=== PATIENT | male | born 1985 | race Caucasian/White ===

== ENCOUNTER 2024-03-25 10:43 | Inpatient (IN) | payer BC ==
[2024-03-25] MEDS: HYDROmorphone 0.5 MG/0.5 ML SYRINGE IVP STA (11:42)
--- NOTE | 2024-03-25 11:48 | ED ---
Back Pain HPI - General Chief Complaint: Back Pain/Injury Stated Complaint: Back Pain Time Seen by Provider: 03/25/24 11:47 Source: patient, EMS, RN notes reviewed Mode of arrival: EMS Limitations: physical limitation - History of Present Illness Initial Comments: 38-year-old male presented to the ER via EMS with a chief complaint of back pain. Patient has an extensive history of back pain and has been following up with a chiropractor to manage symptoms. He states for the past 3 days he has been having exacerbation of pain. He was seen at [facility] and had x-rays and CT scan completed. He states he has been having weakness as his legs will "give out" on him. He does report a mild paresthesia to perineal area. He reports his right leg is more painful than his left. He states he has been constipated for the past 3 days and is having difficulty urinating. Denies any known new injuries or traumas. He has been taking muscle relaxers, ibuprofen and Medrol Dosepak without relief. - Related Data Home Medications Medication Instructions Recorded Confirmed Bariatric Multivitamin 1 tab PO DAILY 03/25/24 03/25/24 HYDROcodone/APAP 5-325MG [[place] 1 tab PO Q6H PRN 03/25/24 03/25/24 5-325] Ibuprofen [Motrin] 600 mg PO Q8HR PRN 03/25/24 03/25/24 Sertraline [Zoloft] 25 mg PO DAILY 03/25/24 03/25/24 Vitamin B Complex 1 cap PO DAILY 03/25/24 03/25/24 methocarbamoL [Robaxin] 500 mg PO Q6H PRN 03/25/24 03/25/24 methylPREDNISolone Dose Pack See Taper PO DAILY 03/25/24 03/25/24 [Medrol Dose Pack] Previous Rx's Medication Instructions Recorded HYDROcodone/APAP 7.5-325MG [[place] 1 tab PO Q6HR PRN 3 Days #12 tab 03/25/24 7.5-325] Naproxen 250 mg PO Q8HR #30 tablet 03/25/24 Allergies Allergy/AdvReac Type Severity Reaction Status Date / Time Penicillins Allergy Unknown Verified 03/25/24 15:21 Childhood Review of Systems ROS Statement: Those systems with pertinent positive or pertinent negative responses have been documented in the HPI. ROS Other: All systems not noted in ROS Statement are negative. Past Medical History Past Medical History: Asthma Additional Past Medical History / Comment(s): COVID 2022 Past Surgical History: Bariatric Surgery Additional Past Surgical History / Comment(s): shoulder tendon repair surgery 2022 Past Psychological History: Anxiety, Depression Smoking Status: Never smoker Past Alcohol Use History: Occasional Past Drug Use History: Marijuana General Exam General appearance: alert, in no apparent distress Head exam: Present: atraumatic, normocephalic, normal inspection Neck exam: Present: normal inspection. Absent: tenderness, meningismus, lymphadenopathy Respiratory exam: Present: normal lung sounds bilaterally. Absent: respiratory distress, wheezes, rales, rhonchi, stridor Cardiovascular Exam: Present: regular rate, normal rhythm, normal heart sounds. Absent: systolic murmur, diastolic murmur, rubs, gallop, clicks Rectal exam: Present: normal inspection, normal rectal tone Back exam: Present: tenderness (lumbar and right pelvic gurdle.) Neurological exam: Present: alert, oriented X3, CN II-XII intact, other (+ right striaght leg raise. pain with movement of leg. 2+ DP and PT pulse. sensation intact) Course Vital Signs 03/25/24 03/25/24 03/25/24 10:45 12:14 14:45 Temperature 97.9 F Pulse Rate 71 62 Respiratory 20 18 Rate Blood Pressure 120/67 115/65 121/82 O2 Sat by Pulse 100 95 Oximetry 03/25/24 17:45 Temperature Pulse Rate 65 Respiratory 18 Rate Blood Pressure 126/84 O2 Sat by Pulse 99 Oximetry - Reevaluation(s) Reevaluation #1: 03/25/24 12:45 Rectal exam completed and chaperoned by Stefania Lange RN. Reevaluation #2: 03/25/24 14:[address] Willis, who advised on outpatient management and follow-up with orthopedics. Reevaluation #3: 03/25/24 14:22 Patient refusing discharge as he does not feel safe to go home. Dr. Thompson called ER and agreed for admission of patient and he will order MRI. 03/25/24 17:[address] Thompson in person who advised 20mg IVP Decadron then 6mg Q6hrs. Also suggested toradol. 03/25/24 17:10 Dr. Willis called ER and would like to be on as medical consult. Medical Decision Making - Medical Decision Making Was pt. sent in by a medical professional or institution (DEANNE Chirinos, BIRD [employer]ER, urgent care, hospital, or care home...) When possible be specific @ -No Did you speak to anyone other than the patient for history (EMS, parent, family, police, friend...)? What history was obtained from this source @ -No Did you review nursing and triage notes (agree or disagree)? Why? @ -I reviewed and agree with nursing and triage notes Were old charts reviewed (outside hosp., previous admission, EMS record, old EKG, old radiological studies, urgent care reports/EKG's, care home records)? Report findings @ -No old charts were reviewed Differential Diagnosis (chest pain, altered mental status, abdominal pain women, abdominal pain men, vaginal bleeding, weakness, fever, dyspnea, syncope, headache, dizziness, GI bleed, back pain, seizure, CVA, palpatations, mental health, musculoskeletal)? @ -Differential Back Pain: Strain, zoster, cauda equina syndrome, epidural abscess, vertebral osteomyelitis, discitis, fracture, subluxation, disc herniation, DJD, spinal stenosis, dissection, AAA, pancreatitis, peptic ulcer disease, pyelonephritis, kidney stone, this is not meant to be an all-inclusive list. EKG interpreted by me (3pts min.). @ -None X-rays interpreted by me (1pt min.). @ -None done CT interpreted by me (1pt min.). @ -CT lumbar spine significant for L3-L4 foraminal/right central disc extrusion with inferior migration. Grade 1 anterolisthesis of L5 on S1 with bilateral spondylolysis. Moderate degenerative changes at L4-L5 U/S interpreted by me (1pt. min.). @ -None done What testing was considered but not performed or refused? (CT, X-rays, U/S, labs)? Why? @ -None What meds were considered but not given or refused? Why? @ -None Did you discuss the management of the patient with other professionals (professionals i.e. DEANNE Chirinos, BIRD TENDER, lab, RT, psych nurse, social studies teacher, divorce lawyer, teacher, recruitment officer, upper caser)? Give summary @ -Yes, case discussed with Dr. Thompson who accepts admission and advised on IV decadron. I also spoke with Dr. Willis who is on medical consult. Was smoking cessation discussed for >3mins.? @ -No Was critical care preformed (if so, how long)? @ -No Were there social determinants of health that impacted care today? How? (Homelessness, low income, unemployed, alcoholism, drug addiction, transportation, low edu. Level, literacy, decrease access to med. care, correction, rehab)? @ -No Was there de-escalation of care discussed even if they declined (Discuss DNR or withdrawal of care, Hospice)? DNR status @ -No What co-morbidities impacted this encounter? (DM, HTN, Smoking, COPD, CAD, Cancer, CVA, ARF, Chemo, Hep., AIDS, mental health diagnosis, sleep apnea, morbid obesity)? @ -None Was patient admitted / discharged? Hospital course, mention meds given and route, prescriptions, significant lab abnormalities, going to OR and other pertinent info. @ -Admitted. 38-year-old male presenting to the ER with chief complaint of back pain. History and physical exam completed. Vitals stable. No red flag back pain symptoms indicative cauda equina syndrome. Patient no signs of acute distress and nontoxic-appearing. Patient laying on abdomen and unable to lie on back due to pain. Bilateral lower extremities neurovascular intact. Normal rectal tone and sensation. Rectal exam chaperoned by Stefania Lange RN. CT lumbar spine significant for L3-L4 foraminal/right central disc extrusion with inferior migration. Results discussed with patient, all questions answered. Admission considered for pain management as patient tried p.o. medications outpatient and failed. Patient was able to have mild relief with IV medications. Case dis cussed with Dr. Willis for medical admission and Ortho consult. He refused initial admission as this can be an outpatient management. Patient attempted to be discharged and refused stating he did not feel safe to go home. Dr. Thompson called ER and stated patient can be admitted under him for pain control. MRI ordered by Ortho. Dr. Thompson advised on IV Decadron. Dr. Willis excepted medical consult. Patient agreeable for admission. Case discussed with ED attending, Dr. Carson. Undiagnosed new problem with uncertain prognosis? @ -No Drug Therapy requiring intensive monitoring for toxicity (Heparin, Nitro, Insulin, Cardizem)? @ -No Were any procedures done? @ -No Diagnosis/symptom? @ -L3-L4 right central disc extrusion Acute, or Chronic, or Acute on Chronic? @ -acute Uncomplicated (without systemic symptoms) or Complicated (systemic symptoms)? @ -uncomplicated Side effects of treatment? @ -No Exacerbation, Progression, or Severe Exacerbation? @ -No Poses a threat to life or bodily function? How? (Chest pain, [place], ND, pneumonia, PE, COPD, DKA, ARF, appy, cholecystitis, CVA, Diverticulitis, Homicidal, Suicidal, threat to staff... and all critical care pts) @ -unlikely - Lab Data Result diagrams: 03/25/24 17:52 03/25/24 17:52 - Radiology Data Radiology results: report reviewed, image reviewed Disposition Clinical Impression: Disc herniation Disposition: HOME SELF-CARE Condition: Stable Is patient prescribed a controlled substance at d/c from ED?: No Time of Disposition: 14:22
--- NOTE | 2024-03-25 11:59 | CT ---
EXAMINATION TYPE: CT lumbar spine wo con CT DLP: 836.6 mGycm, Automated exposure control for dose reduction was used. DATE OF EXAM: 03/25/2024 11:45 AM COMPARISON: None. CLINICAL INDICATION:Male, 38 years old with history of pain; PHH, BACK PAIN TECHNIQUE: Multiple axial images were obtained from the midportion of T11 through the sacroiliac santa nts. Soft tissue and bone windows in coronal and sagittal planes were obtained and reviewed. 3-D ref ormats of the bones were created on a separate workstation and submitted for review. Contrast used: mL of , (None, if empty). Oral contrast used: (None, if empty). FINDINGS: Alignment: There are 5 lumbar type vertebral bodies. Grade 1 anterolisthesis of L5 on S1 with bilater al spondylolysis. Bone: Moderate degeneration changes at L4-L5 at this space narrowing, vacuum disc phenomenon and oste ophytes. Discs: T12-L1: No spinal canal or neural foraminal stenosis is identified. L1-L2: No spinal canal or neural foraminal stenosis is identified. L2-L3: No spinal canal or neural foraminal stenosis is identified. L3-L4: Right central disc extrusion with mild spinal canal stenosis which appears to have inferior mi gration up to 15 mm. There is mild to moderate neural foraminal stenosis bilaterally. L4-L5: Posterior osteophytes with disc bulge with mild to moderate spinal canal stenosis. There is mo derate neural foraminal stenosis bilaterally. L5-S1: No spinal canal or neural foraminal stenosis is identified. Other: None IMPRESSION: 1. L3-L4 Foraminal/right central disc extrusion with inferior migration. 2. Grade 1 anterolisthesis of L5 on S1 with bilateral spondylolysis. 3. Moderate degeneration changes at L4-L5.
[2024-03-25] MEDS: HYDROmorphone 1 MG/ML 1 ML SYRINGE IVP STA (12:40)
[2024-03-25] MEDS ORDERED: NALOXONE 0.4 MG/ML 1 ML VIAL IV PRN (15:35)
[2024-03-25] MEDS ORDERED: CALCIUM CARBONATE 500 MG CHEWABLE PO PRN (17:23)
--- NOTE | 2024-03-25 17:23 | P.CONS ---
History of Present Illness - Reason for Consult Consult date: 03/25/24 Medical management Requesting physician: Deon Thompson - Chief Complaint Low back pain with right leg pain - History of Present Illness This is a 38-year-old patient follows with Dr. Cassie Harden. This about the age of 15 years patient states he has been having lower back symptoms. Never really followed up with anybody. In December of this year patient had slipped on ice. Did go to see a chiropractor. With some help. Pain has been going up and down since then. This Thursday that is about 5 days ago patient started with severe pain what he describes on the lower back on the right side and pain became rather severe. EMS was called and he was taken to [facility]. From that they were planning to send him down to [facility]. But because of computer glitch they decided to send the patient home with pain medications. Patient is at home has been having severe pain. With the above symptoms. Able to make urine. Last bowel movement was 3 days ago. Presented to the ER. Here no fever no chills. Patient was sent in for an MRI from the ER but because of pain could not hold still. Hence postponed for tonight. 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 Cigarettes occasionally.. Occasional marijuana Physical examination: VITAL SIGNS: 97.9, 62, 18, 121/82, 95% room air GENERAL: BMI 31.7, patient is lying facedown. With right leg slightly pulled out. Finding it difficult to go back on his back. EYES: Pupils equal. Conjunctiva lilibeth l. HEENT: External appearance of nose and ears normal, oral cavity grossly normal. NECK: JVD not raised; masses not palpable. HEART: First and second heart sounds are normal; no edema. LUNGS: Respiratory rate normal; clear to auscultation. ABDOMEN: Soft, nontender, liver spleen not palpable, no masses palpable. PSYCH: Alert and oriented x3; mood and affect anxious l. MUSCULOSKELETAL:No Clubbing/cyanosis;muscles-grossly intact. Some localized tenderness around the right SI joint. NEUROLOGICAL: Cranial nerves grossly intact; no facial asymmetry, limited range of motion on the right hip. Reflexes appear to be equivocal... LYMPHATICS: No lymph nodes palpable in the axilla and neck INVESTIGATIONS, reviewed in the clinical context: CT lumbar spine without contrast: L3-L4 right central disc extrusion with mild spinal canal stenosis which appears to have inferior migration up to 15 mm. Mild to moderate neural foraminal stenosis bilaterally. L4-L5 posterior osteophytes with disc bulge with mild to moderate spinal canal stenosis.There is moderate neural foraminal stenosis bilaterally. Assessment plan: -Acute on chronic lower back pain more localized in the area of the lower lumbar spine and in the area of the right SI joint. Patient's had back problems since the age of 15. Back in December had a fall with increasing pain. Did go to see the chiropractor with some help. Since 5 days pain has become much worse. Cannot feel the right leg and increasing pain interfering with walking. CT scan findings are seen. IV Decadron. Will add naproxen [id number] for anti-inflammatory. -Anxiety depression otherwise specified Continue Zoloft -Obesity BMI 31.7 Weight loss measures Care was discussed with the patient. Questions answered. Pending MRI of the spine. Will follow Thank you Dr. Thompson Past Medical History Past Medical History: Asthma Additional Past Medical History / Comment(s): COVID 2022 Past Surgical History: Bariatric Surgery Additional Past Surgical History / Comment(s): shoulder tendon repair surgery 2022 Past Psychological History: Anxiety, Depression Smoking Status: Never smoker Past Alcohol Use History: Occasional Past Drug Use History: Marijuana Medications and Allergies Home Medications Medication Instructions Recorded Confirmed Type Bariatric Multivitamin 1 tab PO DAILY 03/25/24 03/25/24 History HYDROcodone/APAP 5-325MG [[place] 1 tab PO Q6H PRN 03/25/24 03/25/24 History 5-325] HYDROcodone/APAP 7.5-325MG [[place] 1 tab PO Q6HR PRN 3 Days #12 tab 03/25/24 Rx 7.5-325] Ibuprofen [Motrin] 600 mg PO Q8HR PRN 03/25/24 03/25/24 History Naproxen 250 mg PO Q8HR #30 tablet 03/25/24 Rx Sertraline [Zoloft] 25 mg PO DAILY 03/25/24 03/25/24 History Vitamin B Complex 1 cap PO DAILY 03/25/24 03/25/24 History methocarbamoL [Robaxin] 500 mg PO Q6H PRN 03/25/24 03/25/24 History methylPREDNISolone Dose Pack See Taper PO DAILY 03/25/24 03/25/24 History [Medrol Dose Pack] Allergies Allergy/AdvReac Type Severity Reaction Status Date / Time Penicillins Allergy Unknown Verified 03/25/24 15:21 Childhood Physical Exam Vitals: Vital Signs Temp Pulse Resp BP Pulse Ox 03/25/24 14:45 62 18 121/82 95 03/25/24 12:14 115/65 03/25/24 10:45 97.9 F 71 20 120/67 100 Intake and Output 03/25/24 03/25/24 03/25/24 06:59 14:59 22:59 Other: Weight 97.522 kg
[2024-03-25] MEDS: DEXAMETHASONE SOD PHOSPHATE 10 MG/ML 1 ML VIAL IVP STA (17:28)
[2024-03-25] MEDS: KETOROLAC 15 MG/ML 1 ML VIAL IVP SCH (17:28)
[2024-03-25] MEDS: CYCLOBENZAPRINE 10 MG TAB PO SCH (18:08)
[2024-03-25] MEDS: LACTATED RINGERS 1,000 ML IV SCH (18:08)
[2024-03-25] MEDS: ENOXAPARIN 40 MG/0.4 ML SYRINGE SQ SCH (18:08)
[2024-03-25] MEDS: HYDROmorphone 1 MG/ML 1 ML SYRINGE IVP PRN (18:18)
[2024-03-25] MEDS: ONDANSETRON 4 MG/2 ML VIAL IVP PRN (18:18)
[2024-03-25 18:19] LABS: Basophils % (A) 1 %; Eosinophils # (A) 0.1 k/uL (0-0.7); Eosinophils % (A) 2 %; HCT 45.4 % (39.0-53.0); HGB 15.3 gm/dL (13.0-17.5); Lymphocytes # (A) 2.4 k/uL (1.0-4.8); Lymphocytes % (A) 30 %; MCH 28.8 pg (25.0-35.0); MCHC 33.6 g/dL (31.0-37.0); MCV 85.5 fL (80.0-100.0); Mean Platelet Volume 8.4; Monocytes # (A) 0.6 k/uL (0-1.0); Monocytes % (A) 7 %; Neutrophils # (A) 4.8 k/uL (1.3-7.7); Neutrophils % (A) 60 %; Platelet Count 203 k/uL (150-450); RBC 5.31 m/uL (4.30-5.90); RDW 12.9 % (11.5-15.5); WBC 8.1 k/uL (3.8-10.6)
[2024-03-25 18:28] LABS: ALT 18 U/L (4-49); AST 22 U/L (17-59); African American GFR (CKD) >90 (>60 ml/min/1.73 sqM); Albumin 3.8 g/dL (3.5-5.0); Alkaline Phosphatase 52 U/L (38-126); Anion Gap 5 mmol/L; Blood Urea Nitrogen 22 mg/dL (9-20); Carbon Dioxide 24 mmol/L (22-30); Chloride 106 mmol/L (98-107); Glucose 91 mg/dL (74-99); Non-African American GFR(CKD) >90 (>60 ml/min/1.73 sqM); Potassium 3.9 mmol/L (3.5-5.1); Sodium 135 mmol/L (137-145); Total Bilirubin 0.9 mg/dL (0.2-1.3); Total Protein 6.7 g/dL (6.3-8.2)
[2024-03-25] MEDS ORDERED: diazePAM 5 MG TAB PO PRN (18:33)
[2024-03-25] MEDS: FAMOTIDINE 20 MG TAB PO SCH (21:25)
[2024-03-25] MEDS: NAPROXEN 250 MG TAB PO SCH (21:25)
[2024-03-26] MEDS: DEXAMETHASONE SOD PHOSPHATE 10 MG/ML 1 ML VIAL IVP SCH (00:13)
[2024-03-26] MEDS ORDERED: TRANEXAMIC 1,000 MG/100ML-NACL 1,000 MG in SALINE 1 100ML.BAG IVPB PRN (08:00)
[2024-03-26] MEDS: SERTRALINE 25 MG TAB PO SCH (08:34)
[2024-03-26] MEDS: diazePAM 5 MG TAB PO PRN (08:34)
--- NOTE | 2024-03-26 09:03 | P.HPOR ---
History of Present Illness H&P Date: 03/26/24 Chief Complaint: Severe LE pain, Constipation, Inability to ambulate 38-year-old male presented to the emergency department with increasing low back pain as well as lower extremity weakness and pain. The patient has a history of low back issues however over the past week they have gotten severely worse over the past 2 days he has progressed the point where he cannot ambulate without severe pain. Patient complains of constipation as well as been going on for 3 days that is either related to his pain or his low back. He complains of a tensioning twanging-like sensation in his low back and he is unable to sit stand or walk without significant issues. He has had progressive pain despite pain medications and the pain is out of proportion in his legs. He denies any urinary incontinence at this time. He denies any saddle anesthesias currently however he states that the sensation in his scrotum is different. He also complains of different sensation in his lower extremities bilaterally around the knee and thigh area. Denies any fevers chills shortness of breath or chest pain at this time. Review of Systems 14 points review of systems completed and as stated in HPI, all other systems reviewed are negative. Past Medical History Past Medical History: Asthma Additional Past Medical History / Comment(s): COVID 2022 History of Any Multi-Drug Resistant Organisms: None Reported Past Surgical History: Bariatric Surgery Additional Past Surgical History / Comment(s): shoulder tendon repair surgery 2022 Past Anesthesia/Blood Transfusion Reactions: No Reported Reaction Past Psychological History: Anxiety, Depression Smoking Status: Never smoker Past Alcohol Use History: Occasional Past Drug Use History: Marijuana Medications and Allergies Home Medications Medication Instructions Recorded Confirmed Type Bariatric Multivitamin 1 tab PO DAILY 03/25/24 03/25/24 History HYDROcodone/APAP 5-325MG [Hoffmeister 1 tab PO Q6H PRN 03/25/24 03/25/24 History 5-325] HYDROcodone/APAP 7.5-325MG [Hoffmeister 1 tab PO Q6HR PRN 3 Days #12 tab 03/25/24 Rx 7.5-325] Ibuprofen [Motrin] 600 mg PO Q8HR PRN 03/25/24 03/25/24 History Naproxen 250 mg PO Q8HR #30 tablet 03/25/24 Rx Sertraline [Zoloft] 25 mg PO DAILY 03/25/24 03/25/24 History Vitamin B Complex 1 cap PO DAILY 03/25/24 03/25/24 History methocarbamoL [Robaxin] 500 mg PO Q6H PRN 03/25/24 03/25/24 History methylPREDNISolone Dose Pack See Taper PO DAILY 03/25/24 03/25/24 History [Medrol Dose Pack] Allergies Allergy/AdvReac Type Severity Reaction Status Date / Time Penicillins Allergy Unknown Verified 03/25/24 15:21 Childhood Physical Examination Osteopathic Statement: *. No significant issues noted on an osteopathic structural exam other than those noted in the History and Physical/Consult. PHYSICAL EXAMINATION: Vitals: Stable at this time General: Awake, alert, appropriate for age, in no acute distress. Pt lying in position on the bed as this is the only position he can tolerate his leg pain otherwise is is unbearable. HEENT: No unusual neck masses around region of lateral neck triangle, thyroid, supraclavicular groove. Extremities: Skin warm and dry without no acute lesions, coloration, temperature, skin intact, no tenderness or erythema. Integument: Hairy patches: Absent Dorsal skin dimples: Absent Cafe au lait spots: Absent Surgical incisions: none Palpation: Please see Pain drawing on Intake sheet for further detail. (Tenderness = T, Nontender = NT, Swelling = S, Ecchymosis = E) Findings on Midline and paraspinal palpation and percussion: Cervical: NT Thoracic: NT Lumbar: TTP, Sacral: NT Special findings: no POSTURAL and MUSCULO-SKELETAL EVALUATION: Coronal Balance: Neutral Recumbent testing: Patient can lay flat on back Sagittal Balance: [Neutral] Shoulder Profile: [Level] Pelvic Girdle: [Level] Neck ROM: [Unrestricted in six directions] Lumbar ROM: Restricted secondary to pain Shoulder ROM: Symmetric in abduction, ER/IR Hip ROM: Symmetric in abduction, adduction, ER/IR Knee ROM: Symmetric and intact in Flexion / extension Hands: Normal appearing structure L and R Feet: Normal appearing structure L and R VASCULAR STATUS : Wrist Pulses: [2/4 bilateral radial and ulnar] Pedal Pulses: [2/4 bilateral DP and PT] Color: [Normal] Edema: [None] NEUROLOGIC EXAMINATION: Mental Status: Awake and alert, fully oriented, with normal attention, concentration and memory, and fluent, appropriate speech. Cranial Nerves: I: Olfactory not tested. II: Visual acuity normal, no visual field deficit noted with confrontation. III,IV: Normal pupillary reflexes & intact extraocular movements without nystagmus. V,: Intact symmetrical facial sensation. VII: Intact symmetrical facial motor movement VIII: Hearing intact. IX,X: Intact gag, swallow, & normal voice. XI: Sternocleidomastoid, trapezius function intact. XII: Tongue midline with normal movements. Special Tests: L'hermitte's Sign: PRESENT Spurling'Sign: Absent Bilateral Cubital percussion test: Absent Bilateral Kylie-Tinel sign - Carpal region: Absent Bilateral Straight Leg Raising: POSITIVE BILATERAL Motor Exam (0-5/5, N/T) STRENGTH UPPER EXTREMITY [5]/5 in all major muscle groups of the UE b/l LOWER EXTREMITY 4/5 in all major muscle groups of the LE b/l -somewhat pain limited due to tensioning of his LE and nerves howevere shows weakness in KF/KE b/l and HF REFLEXES Upper Extremity: RIGHT [2]/4 LEFT [2]/4 Lower Extremity: RIGHT 1/4 LEFT 1/4 Pathological Reflexes Wasserman's: RIGHT [Absent] LEFT [Absent] Babinski: RIGHT [Absent] LEFT [Absent] Clonus: RIGHT [None] LEFT [None] Rectal Tone: Present and good volition SENSORY Pain and LT sense [Intact C5-T1 and L2-S1] Perianal sensation intact Scrotal sensation intact Dermatomal deficit L3-S1 decreased sensation to LT b/l Gait and Functional Evaluation: Ambulatory aids: Needs walker to get up and move, cannot move without significant pain. Results CT lumbar spine: Reviewed with pt. There is L3-4 large HNP noted with extruded fragment causing severe stenosis at L3-4 region, this would be better seen and quantified on MRI scan. There is spondylosis L4-5 with complete disc collpase and disc osteophyte complex noted causing moderate central and b/l foraminal stenosis. There are b/l pars defects and spondylolysis with spondylolisthesis GI at L5-S1 noted as well. There is reasonable disc height at this level still and minimal central and foraminal stenosis at this time here. There are no other lesions or fractures noted a tthis time. Alignment is stable. Remaining lumbar levels within reasonable anatomic limits. 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 It was my pleasure to have seen and examined Aditya Winter. In our visit today we have had a chance to go over subjective complaints, physical examination findings and treatments including the natural course hist ory without intervention and various interventional options. The patients imaging demonstrates L3-4 extruded disc herniation with L4-S1 spondylosis, L5-S1 spondylolysis with GI spondylolisthesis. On physical exam, Aditya Winter demonstrates Severe tensioning sings b/l LE with radiculopathy, low back pain. LE weakness 4/5 and decreased perinal sensations. I have explained to the patient that as their condition progresses it will cause further neurological deficits and eventual paralysis. Based on the patients imaging, physical exam, and the rapid progression and disabling nature of their symptoms, at this time I recommend surgery in the form or a: L3-4 laminectomy with discectomy. I discussed the risk and benefits of this procedure at length with Aditya Winter . The patient at bedside agreed to considered pursuing the procedure abovementioned. Questions were invited and answered, and the patient wishes to proceed as outlined below pending MRI results. We discussed at length different options for the patient for treatment. Surgically we can decompress the L3-4 region and just do this level, but he has reason to involve L4-S1. This is less than idea, but a possibility in the interest of doing one surgery for the patient and being done, howevere to just take care of his current issues we will likely just be decompression L3-4 region with Disccecomty and he understands this and is comfortable with the potential of needing to come back at a later date and fuse the L4-S1 regions to complete his treatment. Currently, I am recommendin. L3-4 laminectomy with discectomy 2. Follow up with PCP for surgical clearance 3. Review of surgical risks and benefits as well as an educational packet on the proposed surgical procedure. Risks: All surgical procedures come with inherent risks, including those related to positioning, anesthesia, intraoperative findings, and postoperative complicatio ns. It is important to understand that surgery does not come with any guarantee of a successful outcome as complications and adverse events are always possible. The patient was given a handout in office today discussing the surgical procedure and risks associated with the intervention, both of which were discussed with the patient. These risks include but are not limited to the following: * Experiencing same, different or even worse symptoms in back, neck, arms, or legs compared to before surgery. * Requiring further surgery or other forms of treatment presently or at some time in the future at same or other levels of the intended spine surgery. * On an extreme but fortunately relatively rare basis severe complication such as blindness, stroke, heart attack, temporary and/or permanent nerve injury, paralysis, coma, or may occur, sometimes without known explanation. * Surgical complications may include but are not limited to risk of infection, fluid accumulation in the surgical dissection site, including a seroma or hematoma, that requires additional surgery, wound drainage, bleeding, new numbness or weakness, vision changes/loss, spinal fluid leakage, non-healing and/or infected incision, headaches, difficulty or inability to swallow, hoarseness, hemopneumothorax, pneumothorax, impotence, retrograde ejaculation, vaginal dryness; injury to nerves, spinal cord, blood vessels, lymphatics or other vital organs (i.e., bowel injury, injury to the great v essels); heterotopic bone formation; complications related to the hardware such as screws, rods, cages including misplaced hardware, device failure, instrumentation at the wrong spine level, hardware fracture/breakage, or hardware loosening; vertebral failure of the spinal column above or below the newly placed hardware; retained surgical instrumentations or devices and the need for further surgery. * Medical risks of the planned spine surgery include but are not limited to generalized Infections to the whole body or local areas outside of the surgical site (sepsis), heart attack, bleeding, anaphylaxis, meningitis, seizure, epilepsy, hearing loss, burn cha, laceration of the head or other areas of the body, bruising, hypersensitivity of the skin, bladder over distension; allergic reaction; shoulder injury related to positioning; fat, blood and air clots to other areas of the body like heart, lungs, brain; failure of internal organs such as lungs, kidneys, liver and excessive bleeding. If blood transfusions are necessary, note that transfusions may cause intolerance reactions such as anaphylaxis or other complex reactions. * Despite best efforts, the results of spine surgery might not heal in terms of bone, soft tissues such as skin, fascia, ligaments, and joints. Additionally, in order to achieve best possible results, spine surgery may be carried out beyond the initially planned levels and involve decompression, fusion including insertion of hardware at levels other than the original intended area of surgical interest change some portions of the procedure in order to ensure the best possible outcomes. * With spine surgery and spinal fusion, there are different off label uses of instrumentation (devices, implants and hardware) as well as biological substances (bone morphogenic proteins, demineralized bone matrix) as well as using extra bone from allograft sources (i.e. cadaver bone) or autograft (iliac crest bone, ribs, or the spine itself). The patient has been given information about these practices and their inherent risks and benefits. The patient has had a chance to review all the listed information, has been given print outs detailing this information, and has had all his/her questions answered to their satisfaction. It was my pleasure to have seen and examined Aditya Winter . In our visit today we have had a chance to go over my understanding of our patient's current condition, the natural course history without intervention and various interventional options. Questions were invited and answered, and the patient wishes to proceed as outlined above. I have seen and examined the patient for 25 minutes and we have spent more than 50% of the time in repeat and detailed counseling about the patient's condition, its natural course history with out and as much as can be predicted with surgery and re-review of various surgical treatment options. In conclusion, Aditya Winter and at bedside requested we proceed with the above suggested surgery and are willing to accept risks and limitations of the suggested surgery as nature of the disease process and our best attempts at treatment for the condition. Thank you again for allowing us to be part of your patient's care. Please don't hesitate to contact me if you have any further questions. Signed and authenticated by: Deon [facility] [address] [place], [address] [address]
[2024-03-26 10:03] LABS: Basophils % (A) 0 %; Eosinophils % (A) 0 %; HCT 48.1 % (39.0-53.0); HGB 16.1 gm/dL (13.0-17.5); Lymphocytes # (A) 0.9 k/uL (1.0-4.8); Lymphocytes % (A) 8 %; MCH 29.1 pg (25.0-35.0); MCHC 33.4 g/dL (31.0-37.0); MCV 87.1 fL (80.0-100.0); Mean Platelet Volume 7.8; Monocytes # (A) 0.3 k/uL (0-1.0); Monocytes % (A) 2 %; Neutrophils # (A) 9.8 k/uL (1.3-7.7); Neutrophils % (A) 89 %; Platelet Count 198 k/uL (150-450); RBC 5.53 m/uL (4.30-5.90); RDW 12.8 % (11.5-15.5)
--- NOTE | 2024-03-26 10:07 | MR ---
EXAMINATION TYPE: MR lumbar spine wo con DATE OF EXAM: 03/26/2024 9:32 AM CLINICAL INDICATION:Male, 38 years old with history of BLE radic weakness, mild perineal paresthesi a; PHH, BLE radiculopathy and weakness, mild perineal paresthesia. COMPARISON: CT 03/25/2024. TECHNIQUE: Multi planar imaging was performed utilizing: T2-weighted, imaging of the lumbar spine. IV Contrast: cc . (None if empty) FINDINGS: Alignment: The lumbar vertebral bodies have preserved heights and alignment. Cord: The conus medullaris and the distal spinal cord appear unremarkable with regards to their signa l intensity and morphology. Bones/Discs: Degeneration changes worse at L4-L5 adjoining endplates with disc space narrowing, vacuu m disc phenomenon, Modic endplate changes and osteophytes. There is moderate facet arthropathy. T12-L1: No evidence of significant spinal canal stenosis or neural foraminal stenosis. L1-L2: No evidence of significant spinal canal stenosis or neural foraminal stenosis. L2-L3: No evidence of significant spinal canal stenosis or neural foraminal stenosis. L3-L4: Right foraminal/right central disc extrusion with inferior migration up to 15 mm series 2 imag e 15 and series 201 image 10. This displaces some of the forming right nerves and exiting right L3-L4 nerve series 301 image 14 and image 15 L4-L5: No evidence of significant spinal canal stenosis. Facet joint arthropathy moderate bilateral n eural foraminal stenosis. L5-S1: Disc uncovering from grade 1 anterolisthesis with bilateral spondylolysis and facet joint arth ropathy resulting in moderate to severe bilateral neural foraminal stenosis. The spinal canal is almeida nt. No significant spinal canal or neural foraminal stenosis in the remainder of the visualized levels. Other findings: None. IMPRESSION: 1. L3-L4 foraminal/paracentral disc extrusion with inferior migration up to 15 mm. This displaces th e exiting right L3-L4 and forming/exiting right L4-L5 nerve. 2. Grade 1 anterolisthesis of L4 and L5 with bilateral spondylolysis and moderate to severe bilatera l neural foraminal stenosis.
[2024-03-26 10:12] LABS: African American GFR (CKD) >90 (>60 ml/min/1.73 sqM); Anion Gap 8 mmol/L; Blood Urea Nitrogen 25 mg/dL (9-20); Calcium 9.4 mg/dL (8.4-10.2); Carbon Dioxide 21 mmol/L (22-30); Chloride 108 mmol/L (98-107); Glucose 113 mg/dL (74-99); Non-African American GFR(CKD) >90 (>60 ml/min/1.73 sqM); Potassium 4.4 mmol/L (3.5-5.1); Sodium 137 mmol/L (137-145)
[2024-03-26] MEDS: IV FLUID CONTINUATION 1,000 ML IV ONE (13:03)
[2024-03-26] MEDS: ceFAZolin 3,000 MG in SODIUM CHLORIDE 0.9% IRRIGATIO 3,000 ML IRRIGATION ONE (13:03)
[2024-03-26] MEDS: GENTAMICIN 80 MG in SODIUM CHLORIDE 0.9% IRRIGATIO 3,000 ML IRRIGATION ONE (13:03)
[2024-03-26] MEDS: THROMBIN (BOVINE) 5,000 UNIT VIAL TOPICAL ONE (13:48)
[2024-03-26] MEDS: LACTATED RINGERS 1,000 ML IV ONE (15:30)
--- NOTE | 2024-03-26 15:40 | P.PN ---
Progress Note - Text Progress Note Date: 03/26/24 - Chief Complaint Low back pain with right leg pain - History of Present Illness This is a 38-year-old patient follows with Dr. Cassie Harden. This about the age of 15 years patient states he has been having lower back symptoms. Never really followed up with anybody. In December of this year patient had slipped on ice. Did go to see a chiropractor. With some help. Pain has been going up and down since then. This Thursday that is about 5 days ago patient started with severe pain what he describes on the lower back on the right side and pain became rather severe. EMS was called and he was taken to [facility]. From that they were planning to send him down to [facility]. But because of computer glitch they decided to send the patient home with pain medications. Patient is at home has been having severe pain. With the above symptoms. Able to make urine. Last bowel movement was 3 days ago. Presented to the ER. Here no fever no chills. Patient was sent in for an MRI from the ER but because of pain could not hold still. Hence postponed for tonight. March 26, 2024: Saw the patient this morning. Was seen earlier by Dr. Thompson. Patient going to the OR this afternoon. Pain somewhat better with pain medications. Has visitors including his at the bedside. NPO. Active Medications Calcium Carbonate/Glycine (Calcium Carbonate 500 Mg Chewable) 1,000 mg PO Q4HR PRN PRN Reason: Dyspepsia Cyclobenzaprine HCl (Cyclobenzaprine 10 Mg Tab) 10 mg PO TID [facility] Last Admin: 03/26/24 08:34 Dose: 10 mg Dexamethasone Sodium Phosphate (Dexamethasone Sod Phosphate 10 Mg/Ml 1 Ml Vial) 6 mg IVP Q6HR [facility] Last Admin: 03/26/24 12:20 Dose: Not Given Diazepam (Diazepam 5 Mg Tab) 5 mg PO ONCE PRN PRN Reason: Anxiety Stop: 03/28/24 23:00 Last Admin: 03/26/24 08:34 Dose: 5 mg Enoxaparin Sodium (Enoxaparin 40 Mg/0.4 Ml Syringe) 40 mg SQ DAILY [facility] Last Admin: 03/26/24 11:20 Dose: Not Given Famotidine (Famotidine 20 Mg Tab) 20 mg PO BID [facility] Last Admin: 03/26/24 08:34 Dose: 20 mg Hydromorphone HCl (Hydromorphone 1 Mg/Ml 1 Ml Syringe) 1 mg IVP Q3HR PRN PRN Reason: Severe Pain (Scale 7 to 10) Last Admin: 03/26/24 12:13 Dose: 1 mg Lactated Ringer's (Lactated Ringers) 1,000 mls @ 125 mls/hr IV .Q8H [facility] Last Admin: 03/26/24 12:21 Dose: Not Given Tranexamic Acid/Sodium (Chloride 1,000 mg/ IV Solution) 100 mls @ 200 mls/hr IVPB Q2HR PRN; Protocol PRN Reason: INTRA-OP Stop: 03/26/24 22:00 Ketorolac Tromethamine (Ketorolac 15 Mg/Ml 1 Ml Vial) 15 mg IVP Q6HR [facility] Stop: 03/30/24 16:34 Last Admin: 03/26/24 12:21 Dose: Not Given Lactulose (Lactulose 20 Gm/30 Ml Cup) 20 gm PO DAILY PRN PRN Reason: Constipation Naloxone HCl (Naloxone 0.4 Mg/Ml 1 Ml Vial) 0.2 mg IV Q2M PRN PRN Reason: Opioid Reversal Naproxen (Naproxen 250 Mg Tab) 250 mg PO TID [facility] Last Admin: 03/26/24 08:34 Dose: 250 mg Ondansetron HCl (Ondansetron 4 Mg/2 Ml Vial) 4 mg IVP Q8HR PRN PRN Reason: Nausea And Vomiting Last Admin: 03/25/24 18:18 Dose: 4 mg Sertraline HCl (Sertraline 25 Mg Tab) 25 mg PO DAILY [facility] Last Admin: 03/26/24 08:34 Dose: 25 mg Social history: 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 Cigarettes occasionally.. Occasional marijuana Physical examination: VITAL SIGNS: 97.8, 56, 17, 125/78, 98% room air GENERAL: Laying in bed a bit uncomfortable EYES: Pupils equal. Conjunctiva lilibeth l. HEENT: External appearance of nose and ears normal, oral cavity grossly normal. NECK: JVD not raised; masses not palpable. HEART: First and second heart sounds are normal; no edema. LUNGS: Respiratory rate normal; clear to auscultation. ABDOMEN: Soft, nontender, liver spleen not palpable, no masses palpable. PSYCH: Alert and oriented x3; mood and affect anxious l. MUSCULOSKELETAL:No Clubbing/cyanosis;muscles-grossly intact. Some localized tenderness around the right SI joint. NEUROLOGICAL: Cranial nerves grossly intact; no facial asymmetry, limited range of motion on the right hip. Reflexes appear to be equivocal... INVESTIGATIONS, reviewed in the clinical context: March 26: White count 11 hemoglobin 16.1 platelets 198 [address] lumbar spine without contrast: L3-L4 right central disc extrusion with mild spinal canal stenosis which appears to have inferior migration up to 15 mm. Mild to moderate neural foraminal stenosis bilaterally. L4-L5 posterior osteophytes with disc bulge with mild to moderate spinal canal stenosis.There is moderate neural foraminal stenosis bilaterally. Assessment plan: -Acute on chronic lower back pain more localized in the area of the lower lumbar spine and in the area of the right SI joint. Patient's had back problems since the age of 15. Back in December had a fall with increasing pain. Did go to see the chiropractor with some help. Since 5 days pain has become much worse. Cannot feel the right leg and increasing pain interfering with walking.: Not improving IV Decadron. Naproxen Patient going down to the OR later this afternoon -Anxiety depression otherwise specified Zoloft -Obesity BMI 31.7 Weight loss measures Continue current medication treatment plan. Pending surgical intervention this afternoon. Thank you Dr. Thompson Past Medical History Past Medical History: Asthma Additional Past Medical History / Comment(s): COVID 2022 Past Surgical History: Bariatric Surgery Additional Past Surgical History / Comment(s): shoulder tendon repair surgery 2022 Past Psychological History: Anxiety, Depression Smoking Status: Never smoker Past Alcohol Use History: Occasional Past Drug Use History: Marijuana
[2024-03-26] MEDS: VANCOMYCIN 1,000 MG VIAL MISCELLANE ONE (15:54)
--- NOTE | 2024-03-26 16:34 | FL ---
EXAMINATION TYPE: FL guidance operating room, XR lumbar spine 2 or 3V Intraoperative/procedural fluor oscopic services were provided. Total fluoroscopy time is 1 minute 24.5 seconds with a total of 14 [place] bmitted images to PACS. Please see the operative/procedural note for further details. DAP: 9.8679 Gycm2
--- NOTE | 2024-03-26 16:36 | P.OP ---
Date of Procedure: 03/26/24 Preoperative Diagnosis: 1. 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 L4-5 SPONDYLOSIS, SEVERE WITH SEVERE STENOSIS 3. L5-S1 BILATERAL SPONDYLOLYSIS WITH GRADE I SPONDYLOLISTHESIS, UNSTABLE 4. LE RADICULOPATHY 5. LE WEAKNESS 6. LOW BACK PAIN 7. COMPLEX SURGICAL PATIENT Postoperative Diagnosis: 1. 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 L4-5 SPONDYLOSIS, SEVERE WITH SEVERE STENOSIS 3. L5-S1 BILATERAL SPONDYLOLYSIS WITH GRADE I SPONDYLOLISTHESIS, UNSTABLE 4. LE RADICULOPATHY 5. LE WEAKNESS 6. LOW BACK PAIN 7. COMPLEX SURGICAL PATIENT Procedure(s) Performed: 1. L5-S1 INTRADISCAL OSTEOTOMY, 3 COLUMN, FOR DEFORMITY CORRECTION. 2. L4-5 POSTEROLATERAL AND INTERBODY FUSION 3. L5-S1 POSTEROLATERAL AND INTERBODY FUSION 4. L3-4, L4-5, L5-S1 BILATERAL LAMINECTOMY, FACETECTOMY AND FORAMINOTOMY. L3-4 IS WITH MICRODISCECTOMY. L4-S1 IS FOR NEURAL DECOMPRESSION WELL CAGE PLACEMENT. 5. L4-S1 SEGMENTAL INSTRUMENTATION 6. L4-5 AND L5-S1 INSERTION OF BIOMECHANICAL DEVICE, CAGES X2 Implants: -[employer] EVEREST RODS [employer] SCREWS -[employer] TRITANIUM CAGES [id number] MED; 9X9MM MED. -AUTOGRAFT, ALLOGRAFT, DBM, MAGNATOS Anesthesia: GETA Surgeon: Deon Thompson Policy Cancellation Clerk #1: Anny Gupta (WAS PRESENT AND ASSISTED WITH ALL ASPECTS OF THE CASE FROM POSITION TO DRESSING PLACEMENT) Estimated Blood Loss (ml): 200 IV fluids (ml): 1,500 Urine output (ml): 250 Pathology: none sent Condition: stable Disposition: PACU Indications for Procedure: Aditya Winter is a 38 yo male presenting for evaluation of LE weakness, Radiculopathy, severe low back pain and bowel issues. It was my pleasure to have seen and examined Aditya Winter. In our visit today we have had a chance to go over subjective complaints, physical examination findings and treatments including the natural course history without intervention and various interventional options. The patients imaging demonstrates L3-4 extruded disc herniation with L4-S1 spondylosis, L5-S1 spondylolysis with GI spondylolisthesis. On physical exam, Aditya Winter demonstrates Severe tensioning sings b/l LE with radiculopathy, low back pain. LE weakness 4/5 and decreased perinal sensations. I have explained to the patient that as their condition progresses it will cause further neurological deficits and eventual paralysis. Based on the patients imaging, physical exam, and the rapid progression and disabling nature of their symptoms, at this time I recommend surgery in the form or a: L3-4 laminectomy with discectomy. I discussed the risk and benefits of this procedure at length with Aditya Winter . The patient at bedside agreed to considered pursuing the procedure abovementioned. Questions were invited and answered, and the patient wishes to proceed as outlined below pending MRI results. We discussed at length different options for the patient for treatment. Surgically we can decompress the L3-4 region and just do this level, but he has reason to involve L4-S1. This is less than idea, but a possibility in the interest of doing one surgery for the patient and being done, howevere to just take care of his current issues we will likely just be decompression L3-4 region with Disccecomty and he understands this and is comfortable with the potential of needing to come back at a later date and fuse the L4-S1 regions to complete his treatment. We discussed at length different options for treatment again in pre op and he has opted for decompression and fusion at this time to take care of his urgent issues. This is very reasonable given his severe pathology at multiple levels. I discussed the risks benefits and potential outcomes again with him, his , and family at bedside and they were willing to proceed. Currently, I am recommendin. L3-4 laminectomy with discectomy; L4-S1 DECOMPRESSION AND FUSION Description of Procedure: L4-S1 open Decompression and fusion The patient was seen and examined in the preoperative area. All preoperative protocols were followed. Informed consent was obtained, risks and benefits of the procedure were discussed at length. Risks including bleeding infection damage to the surrounding tissue and risk of reoperation were discussed with the patient. Risk of anesthesia up to and including was discussed with the patient. These are outlined in the risk review. They were willing to accept these risks and all the risks of surgery. The patient was given a weight-based dose of antibiotics in the form of 2 g Ancef. The patient was seen and evaluated by the anesthesia team who deemed them fit for surgery. The site was marked, the patient was willing to proceed with the procedure. The patient was transferred to the operative suite by the Department of anesthesia. They were then drifted off to sleep by the department anesthesia and GETA was performed. The patient tolerated this well. Larson catheter was placed by nursing staff, a-traumatically. Once confirmation of lines and ventilation the patient was transferred to a prone Yomi table very carefully. All bony prominences including wrists, elbows, axilla, chest, hips, and thighs, and feet were padded very well. Special attention was paid to the genitalia, and these were padded accordingly. SCDs were placed on bilateral lower extremities and were connected. Arms were well padded and placed on arm boards up and out in the 90/90 position. Once in position, again we confirmed good ventilation capabilities and that lines were running appropriately. The patients Lumbar spine was then exposed. 1010s were placed outlining the incision site. Standard alcohol was used to clean the incision site and allowed to dry. C-arm was used to needle localize the pedicles at L4-S1 and bio-hannah the patient and confirm level for incision which was marked with a skin marker. Operative briefing was performed with all teams and everyone in agreement to proceed. The patient was then prepped and draped in a normal sterile fashion. Timeout was then performed, and all parties agreed with the procedure to be performed. Midline skin incision was made over the previously bio-marked area and dissection taken down over the SP of L3-S1. L4-S1 was taken out over facet joints and TPs and a penfield 4 used to hannah the L4 pedicle. Lateral image used to confirm levels. Once confirmed, screws were proceeded to be placed b/l at pedicles from L4-S1 using [employer] Navigation. An SP clamp was used, 3D C arm spin obtained and confirmed to be accurate. Once this was confirmed screws were placed using a navigated kassandra, navigated awl-tap and navigated river driver. Once screws were placed they were confirmed to be in good position using AP and Lateral fluoroscopy. The wound was then irrigated. Screws were tested and all tested above 20 mA. We then proceeded to decompression and cage placement. Attention was then turned to interbody fusion at L5-S1 and osteotomy for deformity correction. There was exuberant scar and osteophyte formation, as well as deformity due to the erosion of the endplates and cystic formation around the neural elements. Bilateral laminectomy, complete facetectomy and foraminotomy performed at L5-S1 using high speed kassandra and Kerrison rongeur. The ligamentum was removed and the dural sac decompressed. Exiting and traversing roots visualized and decompressed. Neural elements were then protected, and disc space accessed with an osteotome. Intradiscal, 3 column osteotomy, was performed under fluoroscopic guidance using an osteotome to remove the entire disc. On one side, Sequential shaving then done under lateral imaging and complete discectomy is performed using robin, pituitary and curette. Once good bleeding endplates accomplished and good height temple with trials, a combination of autograft, allograft and synthetic placed anterior in the disc space. The cage was then selected and impacted into place under lateral imaging. The cage restoring height, lordosis and alignment. The cage was backfilled with bone graft through a funnel. The rod pointer was removed and the area inspected. Good cage placement, stable cage and no injuries. Area was irrigated copiously, and meticulous hemostasis achieved. We then proceeded to L4-5 interspace. Attention was then turned to interbody fusion at L4-5. Bilateral laminectomy, complete facetectomy and foraminotomy performed at L4-5 using high speed kassandra and Kerrison rongeur. The ligamentum was removed and the dural sac decompress ed. Exiting and traversing roots visualized and decompressed. Neural elements were then protected, and disc space accessed with an osteotome. using an osteotome to remove the entire disc. Sequential shaving then done under lateral imaging and complete discectomy performed using robin, pituitary and curette. Once good bleeding endplates accomplished and good height temple with trials, a combination of autograft, allograft and synthetic placed anterior in the disc space. The cage was then selected and impacted into place under lateral imaging. Cage was filled and impacted which restored height and lordosis to this level as well. The rod pointer was removed and the area inspected. Good cage placement, stable cage and no injuries. Area was irrigated copiously, and meticulous hemostasis achieved. The wound and disc spaces were irrigated and meticulous hemostasis achieved. Further decompression was done at L3-4 with bilateral laminectomy, partial medial facetectomy and foraminotomies bilateral was done. Disc was identified and there was a large extruded fragment subPLL which was identified. The thecal sac was protected and annulotomy knife was used to incise the PLL and annulus. Micropituitary was then used to remove the large extruded fragment. Any loose fragments were removed as well. The extruded fragment tracked behind the L4 vertebral body to almost the L4-5 disc space as well. All of this was completely removed and good decompression was confirmed. The annulus was then bipolared for scar formation and the area irrigated. Meticulous hemostasis was then done. Rods were then sized and selected and placed into S1 screws b/l. Set screws locked these in place and then sequentially reduced into L4 and L5 b/l for alignment temple. This was accomplished. Set screws were then all placed and finally tightened. A cross link was selected and placed and finally tightened. TPs were then decorticated with a high speed kassandra. The wound was irrigated with 3L Ancef irrigation, 2L betadine, 1L irricept and 3L gentamicin irrigation and 3L NSS. Surgicel was placed over the dura. Autograft and MagnatOs placed in the Left PL gutter and Contour and autograft placed in the right PL gutter. then placed in the posterolateral gutters and impacted into place. Deep drain placed and secured to the skin. Final images confirmed good placement of hardware and good reduction of listhesis as well as temple of height and lordosis. Fascia was then closed with #1 PDS. Deep subq closed with 0 Vicryl. Superficial subq closed with 2-0 Vicryl and skin with guillermina. Wound edges approximated very well. Wound was then cleaned with alcohol and dried. Wounds dressed with Optifoam dressings. The patient was then transferred off the table back to their hospital bed a- traumatically. They were extubated by the department of anesthesia. They were then transferred to PACU in stable condition having tolerated the procedure with no complications.
[2024-03-26] MEDS ORDERED: HYDROcodone/APAP 5-325MG 1 EACH TAB PO PRN (16:37)
[2024-03-26] MEDS ORDERED: HYDROmorphone 0.5 MG/0.5 ML SYRINGE IVP PRN (16:37)
[2024-03-26] MEDS ORDERED: HYDROmorphone 1 MG/ML 1 ML SYRINGE IVP PRN (16:37)
[2024-03-26] MEDS ORDERED: MAGNESIUM HYDROXIDE 2,400 MG/30 ML CUP PO PRN (16:37)
[2024-03-26] MEDS ORDERED: bisacodyL 10 MG SUPP RECTAL PRN (16:37)
[2024-03-26] MEDS ORDERED: NA PHOS,M-B/NA PHOS,DI-BA 133 ML ENEMA RECTAL PRN (16:37)
[2024-03-26] MEDS ORDERED: LIDOCAINE 1% (10MG/ML) FOR IV START INTRADERMA PRN (16:41)
[2024-03-26] MEDS ORDERED: ONDANSETRON 4 MG/2 ML VIAL IVP PRN (16:41)
[2024-03-26] MEDS: HYDROmorphone 0.5 MG/0.5 ML SYRINGE IVP PRN (16:50)
[2024-03-26] MEDS: HYDROcodone/APAP 10-325MG 1 EACH TAB PO PRN (17:47)
[2024-03-26] MEDS: CYCLOBENZAPRINE 5 MG TAB PO PRN (17:48)
[2024-03-26] MEDS: DEXAMETHASONE SOD PHOSPHATE 4 MG/ML 1 ML VIAL IV ONE (18:47)
[2024-03-26] MEDS: LACTATED RINGERS 1,000 ML IV SCH (18:48)
[2024-03-26] MEDS: ONDANSETRON 4 MG/2 ML VIAL IVP ONE (18:48)
--- NOTE | 2024-03-27 00:50 | CT ---
EXAM: CT Lumbar Spine Without Intravenous Contrast CLINICAL HISTORY: ITS.REASON CT Reason: Lumbar post op TECHNIQUE: Axial computed tomography images of the lumbar spine without intravenous contrast. CTDI is 24.2 mGy and DLP is 998 mGy-cm. This CT exam was performed using one or more of the following dose reduction techniques: automated exposure control, adjustment of the mA and/or kV according to patient size, and/or use of iterative reconstruction technique. COMPARISON: Comparison made to prior CT scan lumbar spine from March 25, 2024 and MRI of the lumbar spine from March 26, 2024. FINDINGS: Vertebrae: Patient is status post posterior decompression of L4 and L5 with posterior and interbody fusion with transpedicular screws and connections is in place from L4-S1. No acute fracture. Discs/spinal canal/neural foramina: No acute findings. No spinal canal stenosis. Soft tissues: There is a moderate amount of epidural air at L4 and L5. There is air and fluid within the surgical cavity with drainage catheter in place. There are surgical guillermina over the skin incision site. IMPRESSION: Status post posterior decompression, posterior interbody fusion of L4-S1 with expected postsurgical changes.
[2024-03-27] MEDS ORDERED: droPERidol 5 MG/2 ML VIAL IVP PRN (07:00)
[2024-03-27 07:11] LABS: Basophils % (A) 0 %; Eosinophils % (A) 0 %; HCT 44.3 % (39.0-53.0); HGB 14.5 gm/dL (13.0-17.5); Lymphocytes # (A) 0.9 k/uL (1.0-4.8); Lymphocytes % (A) 8 %; MCH 28.9 pg (25.0-35.0); MCHC 32.7 g/dL (31.0-37.0); MCV 88.4 fL (80.0-100.0); Mean Platelet Volume 7.9; Monocytes # (A) 0.4 k/uL (0-1.0); Monocytes % (A) 3 %; Neutrophils # (A) 10.5 k/uL (1.3-7.7); Neutrophils % (A) 88 %; Platelet Count 185 k/uL (150-450); RBC 5.01 m/uL (4.30-5.90); RDW 12.9 % (11.5-15.5); WBC 11.8 k/uL (3.8-10.6)
[2024-03-27 07:28] LABS: African American GFR (CKD) >90 (>60 ml/min/1.73 sqM); Anion Gap 5 mmol/L; Blood Urea Nitrogen 24 mg/dL (9-20); Calcium 8.9 mg/dL (8.4-10.2); Carbon Dioxide 26 mmol/L (22-30); Chloride 105 mmol/L (98-107); Glucose 113 mg/dL (74-99); Non-African American GFR(CKD) >90 (>60 ml/min/1.73 sqM); Potassium 4.6 mmol/L (3.5-5.1); Sodium 136 mmol/L (137-145)
[2024-03-27] MEDS: TAMSULOSIN 0.4 MG CAP.ER.24H PO SCH (09:56)
[2024-03-27] MEDS: SENNOSIDES-DOCUSATE SODIUM 1 EACH TAB PO SCH (09:56)
--- NOTE | 2024-03-27 14:49 | P.PN ---
Subjective Progress Note Date: 03/27/24 Principal diagnosis: L3-4 extruded disc herniation with severe stenosis L4-5 spondylosis, severe with stenosis L5-S1 spondylolysis with spondylolisthesis GI with mild stenosis LE weakness LE paresthesias Low back pain Patient seen and examined this morning. Patient is resting comfortably in bed. Patient reports he did attempt to stand at bedside, tolerated activity well. Larson catheter was removed at midnight last night and patient was straight cathed for 900 mL. Patient was due to void. Flomax will be ordered to start this morning. Surgical incision to the lumbar spine, dressing is clean dry and intact. Hemovac is present with 260 mL output overnight. Patient reports improvement of bilateral lower extremity numbness and tingling since the procedure. Informed patient that physical therapy may begin to work with him today. Prescription for LSO brace will be placed in chart. Encourage patient to be up in chair for all meals. Continue to encourage use of incentive spirometer 10 times an hour while awake. Objective - Vital Signs Vital signs: Vital Signs Temp 98.3 F 03/27/24 02:36 Pulse 53 L 03/27/24 02:36 Resp 16 03/27/24 02:36 BP 109/66 03/27/24 02:36 Pulse Ox 96 03/27/24 02:36 FiO2 Intake & Output 03/26/24 03/27/24 03/27/24 18:59 06:59 18:59 Intake Total 1552 Output Total 400 2000 Balance 1152 -2000 Intake: IV 1552 Output: Drainage 200 Lower Back 200 Urine 200 1800 Straight 900 Uretheral (Larson) 900 Estimated Blood Loss 200 Other: Voiding Method Urinal Indwelling Catheter - Exam Physical Examination General: The patient is awake and alert, in no acute distress Skin: Skin is warm and dry with no obvious rashes or lesions. Surgical incision to the lumbar spine, dressing is CDI. Hemovac present with 280ml output overnight. Eye: Pupils are equal, round and reactive to light, extra-ocular movements are intact; there is normal conjunctiva bilaterally. Neck: The neck is supple, there is no tenderness and ROM intact. Cardiovascular: There is a regular rate and rhythm. No murmur, rub or gallop is appreciated. Respiratory: Lungs are clear to auscultation, respirations are non-labored, breath sounds are equal. Gastrointestinal: Soft, non-distended, non-tender abdomen. Back: There is no tenderness to palpation in the midline, paralumbar, parathoracic or buttocks region. There is no obvious deformity . Musculoskeletal: ROM limited secondary to pain and stiffness from surgical procedure. Muscle strength in all major muscle groups of bilateral upper extremities 5/5, bilateral lower extremities 4/5. Neurological: CN 2-12 intact. There are no obvious motor or sensory deficits. Movement and coordination equal and intact. Sensory exam to light touch intact C5-T1 and intact from L2-S1. Reflexes 2/4 in bilateral upper and lower extremities. Negative Hoffmans, babinski, and clonus signs. Psychiatric: Cooperative, appropriate mood & affect, normal judgment. - Labs CBC & Chem 7: 03/27/24 05:53 03/27/24 05:53 Labs: Abnormal Lab Results - Last 24 Hours (Table) 03/26/24 03/26/24 03/27/24 Range/Units 09:38 09:38 05:53 WBC 11.0 H 11.8 H (3.8-10.6) k/uL Neutrophils # 9.8 H 10.5 H (1.3-7.7) k/uL Lymphocytes # 0.9 L 0.9 L (1.0-4.8) k/uL Chloride 108 H (98-107) mmol/L Carbon Dioxide 21 L (22-30) mmol/L BUN 25 H (9-20) mg/dL Creatinine 0.60 L (0.66-1.25) mg/dL Glucose 113 H (74-99) mg/dL Assessment and Plan Assessment: Postop day 1: L3-L4 laminectomy with L4-S1 decompression and fusion L3-4 extruded disc herniation with severe stenosis L4-5 spondylosis, severe with stenosis L5-S1 spondylolysis with spondylolisthesis GI with mild stenosis LE weakness LE paresthesias Low back pain Plan: -Appreciate documentation consultant and team management. -Activity: Ambulate QID, OOB all meals, up and about, limit lifting bending twisting to less than 5 lbs. Use walker or cane if needed for stability. -Daily PT/OT, increase ambulation strength and balance. -Brace when up and about, not needed in bed or chair -Prescription for LSO brace has been placed in chart. -Pain control: Adequate at this time -Meds: reviewed -GI ppx: senna, Miralax -DVT PPX: OK to restart Heparin tonight -Hygiene: Shower today. Maintain dressing clean and dry. Meticulous cleaning after BMs away from the incision site -Drains: Maintain for now. Continue to monitor and record output q shift. -Encourage IS 10x/hr -Dispo: Clinically pending *I reviewed and discussed this case with my attending Dr. Thompson, whom has reviewed this chart and films and is in agreement with assessment and plan of care as outlined above. I have personally seen and examined the patient, performed the documentation and the assessment and plan as written. Number of minutes spent on the visit: 20m.
--- NOTE | 2024-03-27 16:13 | P.PN ---
Progress Note - Text Progress Note Date: 03/27/24 - Chief Complaint Low back pain with right leg pain - History of Present Illness This is a 38-year-old patient follows with Dr. Cassie Harden. This about the age of 15 years patient states he has been having lower back symptoms. Never really followed up with anybody. In December of this year patient had slipped on ice. Did go to see a chiropractor. With some help. Pain has been going up and down since then. This Thursday that is about 5 days ago patient started with severe pain what he describes on the lower back on the right side and pain became rather severe. EMS was called and he was taken to [facility]. From that they were planning to send him down to [facility]. But because of computer glitch they decided to send the patient home with pain medications. Patient is at home has been having severe pain. With the above symptoms. Able to make urine. Last bowel movement was 3 days ago. Presented to the ER. Here no fever no chills. Patient was sent in for an MRI from the ER but because of pain could not hold still. Hence postponed for tonight. March 26, 2024: Saw the patient this morning. Was seen earlier by Dr. Thompson. Patient going to the OR this afternoon. Pain somewhat better with pain medications. Has visitors including his at the bedside. NPO. March 27, 2024: Status post surgical intervention by Dr. Thompson. Hemovac in place. Some pain is present. Did eat some. Pain at operative site. Active Medications Hydrocodone Bitart/Acetaminophen (Hydrocodone/Apap 5-325mg 1 Each Tab) 1 each PO Q4HR PRN PRN Reason: Pain Scale 4 - 6 Hydrocodone Bitart/Acetaminophen (Hydrocodone/Apap 10-325mg 1 Each Tab) 1 each PO Q6H PRN PRN Reason: Pain Scale 7 - 10 Last Admin: 03/27/24 15:30 Dose: 1 each Bisacodyl (Bisacodyl 10 Mg Supp) 10 mg RECTAL DAILY PRN PRN Reason: Constipation Calcium Carbonate/Glycine (Calcium Carbonate 500 Mg Chewable) 1,000 mg PO Q4HR PRN PRN Reason: Dyspepsia Cyclobenzaprine HCl (Cyclobenzaprine 10 Mg Tab) 10 mg PO TID [facility] Last Admin: 03/27/24 15:30 Dose: 10 mg Dexamethasone Sodium Phosphate (Dexamethasone Sod Phosphate 10 Mg/Ml 1 Ml Vial) 6 mg IVP Q6HR [facility] Last Admin: 03/27/24 12:56 Dose: 6 mg Diazepam (Diazepam 5 Mg Tab) 5 mg PO ONCE PRN PRN Reason: Anxiety Stop: 03/28/24 23:00 Last Admin: 03/26/24 08:34 Dose: 5 mg Droperidol (Droperidol 5 Mg/2 Ml Vial) 0.625 mg IVP ONCE PRN PRN Reason: Phase 1 or 2 - Nausea/Vomiting Stop: 03/27/24 23:00 Enoxaparin Sodium (Enoxaparin 40 Mg/0.4 Ml Syringe) 40 mg SQ DAILY [facility] Last Admin: 03/27/24 09:57 Dose: 40 mg Famotidine (Famotidine 20 Mg Tab) 20 mg PO BID [facility] Last Admin: 03/27/24 09:56 Dose: 20 mg Hydromorphone HCl (Hydromorphone 1 Mg/Ml 1 Ml Syringe) 1 mg IVP Q3HR PRN PRN Reason: Severe Pain (Scale 7 to 10) Last Admin: 03/27/24 10:01 Dose: 1 mg Hydromorphone HCl (Hydromorphone 0.5 Mg/0.5 Ml Syringe) 0.5 mg IVP Q3HR PRN PRN Reason: Pain Scale 4 - 6 Hydromorphone HCl (Hydromorphone 1 Mg/Ml 1 Ml Syringe) 1 mg IVP Q3HR PRN PRN Reason: Pain Scale of 7 - 10 Hydromorphone HCl (Hydromorphone 0.5 Mg/0.5 Ml Syringe) 0.5 mg IVP Q5M PRN PRN Reason: Phase 1 or 2 - Pain Control Stop: 03/27/24 23:00 Last Admin: 03/26/24 16:50 Dose: 0.5 mg Lactated Ringer's (Lactated Ringers) 1,000 mls @ 125 mls/hr IV .Q8H [facility] Last Admin: 03/27/24 12:55 Dose: 125 mls/hr Lactated Ringer's (Lactated Ringers) 1,000 mls @ 20 mls/hr IV .Q24H [facility] Last Admin: 03/26/24 18:48 Dose: Not Given Ketorolac Tromethamine (Ketorolac 15 Mg/Ml 1 Ml Vial) 15 mg IVP Q6HR [facility] Stop: 03/27/24 18:00 Last Admin: 03/27/24 12:56 Dose: 15 mg Lactulose (Lactulose 20 Gm/30 Ml Cup) 20 gm PO DAILY PRN PRN Reason: Constipation Lidocaine HCl (Lidocaine 1% (10mg/Ml) For Iv Start) 0.1 ml INTRADERMA PER PROTOCOL PRN PRN Reason: IV Start Magnesium Hydroxide (Magnesium Hydroxide 2,400 Mg/30 Ml Cup) 2,400 mg PO DAILY PRN PRN Reason: Constipation Naloxone HCl (Naloxone 0.4 Mg/Ml 1 Ml Vial) 0.2 mg IV Q2M PRN PRN Reason: Opioid Reversal Naproxen (Naproxen 250 Mg Tab) 250 mg PO TID [facility] Last Admin: 03/27/24 15:30 Dose: 250 mg Ondansetron HCl (Ondansetron 4 Mg/2 Ml Vial) 4 mg IVP Q6HR PRN PRN Reason: Nausea And Vomiting Senna/Docusate Sodium (Sennosides-Docusate Sodium 1 Each Tab) 2 each PO DAILY [facility] Last Admin: 03/27/24 09:56 Dose: 2 each Sertraline HCl (Sertraline 25 Mg Tab) 25 mg PO DAILY [facility] Last Admin: 03/27/24 09:56 Dose: 25 mg Sodium Biphosphate/Sodium Phosphate (Na Phos,M-B/Na Phos,Di-Ba 133 Ml Enema) 133 ml RECTAL DAILY PRN PRN Reason: Constipation Tamsulosin HCl (Tamsulosin 0.4 Mg Cap.Er.24h) 0.4 mg PO -BRKFST [facility] Last Admin: 03/27/24 09:56 Dose: 0.4 mg 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 Cigarettes occasionally.. Occasional marijuana Physical examination: VITAL SIGNS: 98, 55, 18, 139 x 88, 100% room air GENERAL: Laying in bed a bit uncomfortable EYES: Pupils equal. Conjunctiva lilibeth l. HEENT: External appearance of nose and ears normal, oral cavity grossly normal. NECK: JVD not raised; masses not palpable. HEART: First and second heart sounds are normal; no edema. LUNGS: Respiratory rate normal; clear to auscultation. ABDOMEN: Soft, nontender, liver spleen not palpable, no masses palpable. PSYCH: Alert and oriented x3; mood and affect anxious l. MUSCULOSKELETAL:No Clubbing/cyanosis;muscles-grossly intact. Dressing over surgical site. Hemovac in place NEUROLOGICAL: Cranial nerves grossly intact; no facial asymmetry, able to move his limbs INVESTIGATIONS, reviewed in the clinical context: March 27: White count 9.8 hemoglobin 14.5 platelets 185 potassium 4.6 creatinine 0.7 March 26: White count 11 hemoglobin 16.1 platelets 198 [address] lumbar spine without contrast: L3-L4 right central disc extrusion with mild spinal canal stenosis which appears to have inferior migration up to 15 mm. Mild to moderate neural foraminal stenosis bilaterally. L4-L5 posterior osteophytes with disc bulge with mild to moderate spinal canal stenosis.There is moderate neural foraminal stenosis bilaterally. Assessment plan: -Acute on chronic lower back pain more localized in the area of the lower lumbar spine and in the area of the right SI joint. Patient's had back problems since the age of 15. Back in December had a fall with increasing pain. Did go to see the chiropractor with some help. Since 5 days pain has become much worse. Cannot feel the right leg and increasing pain interfering with walking.: Initially received IV Decadron. Naproxen 1. 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 L4-5 SPONDYLOSIS, SEVERE WITH SEVERE STENOSIS 3. L5-S1 BILATERAL SPONDYLOLYSIS WITH GRADE I SPONDYLOLISTHESIS, UNSTABLE 4. LE RADICULOPATHY 5. LE WEAKNESS 6. LOW BACK PAIN 7. COMPLEX SURGICAL PATIENT Procedure(s) Performed: 1. L5-S1 INTRADISCAL OSTEOTOMY, 3 COLUMN, FOR DEFORMITY CORRECTION. 2. L4-5 POSTEROLATERAL AND INTERBODY FUSION 3. L5-S1 POSTEROLATERAL AND INTERBODY FUSION 4. L3-4, L4-5, L5-S1 BILATERAL LAMINECTOMY, FACETECTOMY AND FORAMINOTOMY. L3-4 IS WITH MICRODISCECTOMY. L4-S1 IS FOR NEURAL DECOMPRESSION WELL CAGE PLACEMENT. 5. L4-S1 SEGMENTAL INSTRUMENTATION 6. L4-5 AND L5-S1 INSERTION OF BIOMECHANICAL DEVICE, CAGES X2 Implants: -[employer] -[employer]IT[employer] [id number] MED; 9X9MM MED. -AUTOGRAFT, ALLOGRAFT, DBM, MAGNATOS -Anxiety depression otherwise specified Zoloft -Obesity BMI 31.7 Weight loss measures Discussed with patient. Hemovac in place. Check CBC. Thank you Dr. Thompson Past Medical History Past Medical History: Asthma Additional Past Medical History / Comment(s): COVID 2022 Past Surgical History: Bariatric Surgery Additional Past Surgical History / Comment(s): shoulder tendon repair surgery 2022 Past Psychological History: Anxiety, Depression Smoking Status: Never smoker Past Alcohol Use History: Occasional Past Drug Use History: Marijuana
[2024-03-28 04:42] LABS: Basophils % (A) 0 %; Eosinophils % (A) 0 %; HCT 40.2 % (39.0-53.0); HGB 13.4 gm/dL (13.0-17.5); Lymphocytes # (A) 0.7 k/uL (1.0-4.8); Lymphocytes % (A) 7 %; MCH 28.8 pg (25.0-35.0); MCHC 33.3 g/dL (31.0-37.0); MCV 86.6 fL (80.0-100.0); Mean Platelet Volume 8.5; Monocytes # (A) 0.5 k/uL (0-1.0); Monocytes % (A) 5 %; Neutrophils # (A) 8.9 k/uL (1.3-7.7); Neutrophils % (A) 87 %; Platelet Count 181 k/uL (150-450); RBC 4.64 m/uL (4.30-5.90); RDW 13.1 % (11.5-15.5); WBC 10.2 k/uL (3.8-10.6)
[2024-03-28 08:40] VITALS: TEMP 98.1
[2024-03-28] MEDS: LACTULOSE 20 GM/30 ML CUP PO PRN (09:44)
--- NOTE | 2024-03-28 12:36 | P.PN ---
Subjective Progress Note Date: 03/28/24 Principal diagnosis: L3-4 extruded disc herniation with severe stenosis L4-5 spondylosis, severe with stenosis L5-S1 spondylolysis with spondylolisthesis GI with mild stenosis LE weakness LE paresthesias Low back pain Patient seen and examined this morning. Patient is sitting up in chair at bedside. Patient reports that his pain is managed on current regimen. He states he has improvement of bilateral lower extremity pain and weakness since the procedure. Surgical incision to the lumbar spine, dressing is intact, Hemovac is present with 80 mL output overnight. Discussed with patient that I would like him to work with physical therapy prior to pulling out Hemovac due to possible increase of output. Patient states he is optimistic for possible discharge later today. No acute concerns at this time. Objective - Vital Signs Vital signs: Vital Signs Temp 97.8 F 03/28/24 02:00 Pulse 54 L 03/28/24 02:00 Resp 18 03/27/24 16:00 BP 124/79 03/28/24 02:00 Pulse Ox 97 03/28/24 02:00 FiO2 Intake & Output 03/27/24 03/28/24 03/28/24 18:59 06:59 18:59 Output Total 120 80 Balance -120 -80 Output: Drainage 120 80 Lower Back 120 80 Other: Voiding Method Urinal Urinal - Exam Physical Examination General: The patient is awake and alert, in no acute distress Skin: Skin is warm and dry with no obvious rashes or lesions. Surgical incision to the lumbar spine, dressing is CDI. Hemovac present with 80ml output overnight. Eye: Pupils are equal, round and reactive to light, extra-ocular movements are intact; there is normal conjunctiva bilaterally. Neck: The neck is supple, there is no tenderness and ROM intact. Cardiovascular: There is a regular rate and rhythm. No murmur, rub or gallop is appreciated. Respiratory: Lungs are clear to auscultation, respirations are non-labored, breath sounds are equal. Gastrointestinal: Soft, non-distended, non-tender abdomen. Back: There is no tenderness to palpation in the midline, paralumbar, parathoracic or buttocks region. There is no obvious deformity . Musculoskeletal: ROM limited secondary to pain and stiffness from surgical procedure. Muscle strength in all major muscle groups of bilateral upper extr emities 5/5, bilateral lower extremities 4/5. Neurological: CN 2-12 intact. There are no obvious motor or sensory deficits. Movement and coordination equal and intact. Sensory exam to light touch intact C5-T1 and intact from L2-S1. Reflexes 2/4 in bilateral upper and lower extremities. Negative Hoffmans, babinski, and clonus signs. Psychiatric: Cooperative, appropriate mood & affect, normal judgment. - Labs CBC & Chem 7: 03/28/24 04:02 03/27/24 05:53 Labs: Abnormal Lab Results - Last 24 Hours (Table) 03/28/24 Range/Units 04:02 Neutrophils # 8.9 H (1.3-7.7) k/uL Lymphocytes # 0.7 L (1.0-4.8) k/uL Assessment and Plan Assessment: Postop day 2: L3-L4 laminectomy with L4-S1 decompression and fusion L3-4 extruded disc herniation with severe stenosis L4-5 spondylosis, severe with stenosis L5-S1 spondylolysis with spondylolisthesis GI with mild stenosis LE weakness LE paresthesias Low back pain Plan: -Appreciate [employer] consultant and team management. -Activity: Ambulate QID, OOB all meals, up and about, limit lifting bending twisting to less than 5 lbs. Use walker or cane if needed for stability. -Daily PT/OT, increase ambulation strength and balance. -Brace when up and about, not needed in bed or chair -Prescription for LSO brace has been placed in chart. -Pain control: Adequate at this time -Meds: reviewed -GI ppx: senna, Miralax -DVT PPX: heparin -Hygiene: Shower today. Maintain dressing clean and dry. Meticulous cleaning after BMs away from the incision site -Drains: Maintain for now. Possible discontinuation after physical therapy -Encourage IS 10x/hr -Dispo: Anticipate discharge later today with home care. *I reviewed and discussed this case with my attending Dr. Thompson, whom has reviewed this chart and films and is in agreement with assessment and plan of care as outlined above. I have personally seen and examined the patient, performed the documentation and the assessment and plan as written. Number of minutes spent on the visit: 20m.
--- NOTE | 2024-03-28 13:55 | P.DS ---
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 They underwent appropriate preoperative care and were willing to undergo the intended procedure. They underwent a successful L3-L4 laminectomy with L4-S1 decompression and fusion, were recovered appropriately and sent to the floor. While on the floor they worked with physical therapy, occupational therapy and nursing to enhance their recovery experience. Their pain was well controlled through their stay and they were started on appropriate medications, DVT ppx modalities, activity and dietary needs. Daily labs were monitored closely, and transfusions were only used when necessary. Medicine as well as other consulting services have made their input and have helped with our team approach and multidisciplinary care. PT milestones have been met and passed and they have made the recommendation of home with home care for this patient and treating providers agree with this care path. The patient will be discharged home with appropriate medications, instructions and follow-up information and in stable condition. Patient Condition at Discharge: Good Plan - Discharge Summary Discharge Rx Participant: Yes New Discharge Prescriptions: New cefaDROXiL [Duricef] 500 mg PO Q12HR #10 cap HYDROcodone/APAP 10-325MG [Paradox 10-325] 1 tab PO Q4-6H PRN #42 tab PRN Reason: Pain Sennosides/Docusate Sodium [Senna Plus 8.6-50 mg Softgel] 1 each PO DAILY PRN #20 capsule PRN Reason: Constipation Cyclobenzaprine [Flexeril] 10 mg PO TID PRN #40 tab PRN Reason: Muscle Spasm Tamsulosin [Flomax] 0.4 mg PO PC-BRKFST #7 cap Naproxen [Naprosyn] 250 mg PO TID #21 tab Continue Sertraline [Zoloft] 25 mg PO DAILY Bariatric Multivitamin 1 tab PO DAILY Vitamin B Complex 1 cap PO DAILY Discontinued methylPREDNISolone Dose Pack [Medrol Dose Pack] See Taper PO DAILY methocarbamoL [Robaxin] 500 mg PO Q6H PRN PRN Reason: Muscle Spasm Ibuprofen [Motrin] 600 mg PO Q8HR PRN PRN Reason: Pain HYDROcodone/APAP 5-325MG [Paradox 5-325] 1 tab PO Q6H PRN PRN Reason: Pain Discharge Medication List Bariatric Multivitamin 1 tab PO DAILY 03/25/24 [History] Sertraline [Zoloft] 25 mg PO DAILY 03/25/24 [History] Vitamin B Complex 1 cap PO DAILY 03/25/24 [History] Cyclobenzaprine [Flexeril] 10 mg PO TID PRN #40 tab 03/28/24 [Rx] HYDROcodone/APAP 10-325MG [Paradox 10-325] 1 tab PO Q4-6H PRN #42 tab 03/28/24 [Rx] Naproxen [Naprosyn] 250 mg PO TID #21 tab 03/28/24 [Rx] Sennosides/Docusate Sodium [Senna Plus 8.6-50 mg Softgel] 1 each PO DAILY PRN #20 capsule 03/28/24 [Rx] Tamsulosin [Flomax] 0.4 mg PO PC-BRKFST #7 cap 03/28/24 [Rx] cefaDROXiL [Duricef] 500 mg PO Q12HR #10 cap 03/28/24 [Rx] Follow up Appointment(s)/Referral(s): Cassie Harden DO [Primary Care Provider] - 1-2 days Deon Thompson DO [Doctor of Osteopathic Medicine] - 03/30/24 9:15 am (Appointment will be with DELISA Mccormick Please bring ID and insurance cards. You will have new patient paperwork to complete. ) [employer] [NON-STAFF] - As Needed (LSO back brace) Activity/Diet/Wound Care/Special Instructions: Spine Discharge and Recovery Instructions Date of Surgery: 03/26/2024 Diagnosis: L3-L4 HNP with L4-S1 spondylosis Procedure: L3-L4 laminectomy with L4-S1 decompression and fusion Medications: See medication list All medication refills should be obtained through your primary care doctor or your clinic spine surgeon. Please discuss prescription refills at your follow up appointment. Do not call the hospital for medication refills. Activity: Encourage ambulation with assist of walker, Up and about 6-8x daily PT/OT daily work on balance, strength and mobility Up in chair with all meals Shower daily Brace: Use brace when up and about, do not wear in bed or shower Dressing: Leave your dressing in place for a total of 3 days post operatively. Then you may remove your dressing and leave open to air. Keep the area clean and if not able to keep area clean, then cover with sterile gauze and tape. Showering: You may shower 3 days after your procedure allowing soap and water to run over incision. Do not scrub. Do not soak. Blot dry. Follow up: Please confirm a follow up appointment with your surgeon 2 weeks post operatively. Please make an appointment to follow up with your PCP in 1-2 weeks after surgery for evaluation `3 phase, 3-week plan POST OP WEEKS 1-3 1. Lifting/carrying/pushing/pulling limited to less than 5 pounds. 2. Do not sit for longer than 15 minutes at one time. Get up and walk around. Prolonged sitting is NOT advised. If you lay down, see if you can tolerate laying down on you front (belly side) 3. Walk for periods of 15 minutes = 1 mile but no longer; do it multiple times times each day. 4. Ice your low back after activity. POST OP WEEKS 3-6 1. Lifting limited to less than 20 pounds. 2. Do not sit for longer than 30 minutes at a time. Frequently change positions. Use a sit-to stand workstation or take frequent breaks from sitting if you have returned to work. 3. Walk for 30 minutes each day. If possible, do these three or more times a day POST OP WEEKS 6+ At your 6-week appointment we will give you a physical therapy referral to focus on a core stabilization and strengthening program. You should also work on leg & buttock strengthening, hamstring & quadriceps stretching, and continue a low impact aerobic activity program such as swimming, walking, or riding a stationary bicycle. During the initial 6 weeks after your surgery, you are at the highest risk of re-injuring your spine. You should generally avoid BLTs (bending, lifting and twisting combination motions) and follow the above guidelines to reduce the chance of reinjury. You can anticipate post op appointments in our office at approximately 3 weeks and 6 weeks after your surgery. INCISION CARE: If your incision is not draining you do NOT need to cover it with a dressing. Keep your incision clean, dry and intact. In most cases, we apply skin glue, guillermina or sutures to the incision at the time of surgery. This will be like a crust or have the appearance of a scab and will fall off in time on its own. The stitches or guillermina need to be removed at 3 weeks post op appointment. You may begin to shower 3 days after surgery (this allows the glue to blanc well). However, please avoid scrubbing the incision site or peeling off any of the skin glue. This will ensure optimal healing of your incision. Also, during this time avoid soaking the incision area in water - this includes swimming pools, hot tubs or baths. No ointments, lotions or oils on the incision until your surgeon allows. Leave guillermina, sutures or glue in place. Neurological dysfunction that comes on suddenly can also be a sign of a stroke. Below some common symptoms of a stroke are listed: B - balance difficulty such as sudden onset walking or leaning to one side - NEW E - eye problem such as sudden double vision or trouble seeing on one side - NEW F - Facial weakness or numbness on one side - NEW A - Arm or leg weakness or numbness on one side - NEW S - Slurred speech or difficulty with word finding - NEW T - Time is BRAIN! Call 911 as soon as you recognize these symptoms Diet: Consume a regular diet rich in vegetables and lean protein such as chicken or fish. You should consume in a ratio of approximately 20% fats|40% carbohydrates|40%protein. Vegetables, sweet potatoes, brown rice or quinoa are examples of good carbohydrates. Chips, white bread, cookies and sweets/sugar are examples of bad carbohydrates. Limit your bad carbs, go wild with good carbs. "Life's Simple 7" Guidelines as per [place] [employer] These will help you reclaim your life after surgery and splicer helper in your recovery, keeping in mind your restrictions. (1) Get Active. Physical activity can help people lose weight, control high blood pressure and cholesterol, feel emotionally better, and sleep better. (2) Control Cholesterol. Avoid a diet high in saturated fat, trans fat, & cholesterol. Limit whole milk & cream, ice cream, butter, egg yolks, processed meats (like sausage and hot dogs), and fatty meats. Choose healthy foods that are low in saturated fat, trans fat and cholesterol which include: Fruits and vegetables, fiber rich grain products (like whole grain pasta and brown rice), lean meat such as chicken, fish, nuts, seeds, and legumes. (3) Eat Better. Eat small portions. Shop at the grocery with a list and do not stray from it. Tips for a healthy diet include: Limit sodium intake to less than 1500mg daily, avoid prepackaged, processed, and fast foods, choose a diet rich in fruits, vegetables, and whole grain, high fiber foods, and limit saturated & cholesterol in your diet. (4) Manage Blood Pressure. If you have high blood pressure, you should have a cuff at home so that you can check your blood pressure regularly. Be sure you have a good cuff. An arm one is generally better than a wrist one. Bring the cuff to a doctor's appointment to validate that the measurements that your cuff are taking are accurate. Take your blood pressure twice daily when you are sitting down and relaxing. Record the numbers in a log and bring this log with you to your doctors' appointments. (5) Lose Weight if your BMI is above 25. A healthy BMI is between 19-25. To calculate Your BMI, you may use a Standard BMI Calculator on the NIH BMI website: <www.nhlbi.nih.gov/guidelines/obesity/BMI/bmicalc.htm>. Weigh oneself daily. If you are overweight, set a goal to lose weight. A pound a week loss if needed is a good target. (6) Reduce Blood Sugar. Limit foods and liquids with "added sugars." (Added sugars include sucrose, fructose, glucose, maltose, dextrose, high fructose corn syrup, corn syrup, concentrated fruit juice and honey). (7) Stop Smoking. If you smoke, quitting smoking is one of the best things that you can do for your health. Smoking increases your risk of heart attack, stroke, and peripheral vascular disease, which is a build-up of plaque in your arteries. Please discard all the cigarettes and lighters in your house. Have a plan for what you will do when you have the urge to smoke. Direct and second- hand smoke shortens your life as well as the lives of your family, friends and others around you. For your health and the health of those around you, please consider quitting! Proper Bending Body Mechanics: Maintain a wide stance with one foot slightly in front of the other. Keep your back straight. Bend utilizing the strength in your hips and knees. Do not bend at the waist. Maintain the lifted object at your waist-level close to your body. Avoid lifting weight that causes immediately pain or pain anywhere in the body afterwards. Smoking/Nicotine If there was ever one thing that you could do to increase your overall health, decrease your risk of cardiovascular problems by about 39% the second you make the choice, it is to STOP SMOKING. Your body's most instant gratification is the second you stop smoking. We have all heard the studies, read the articles but it is true, smoking is extremely bad for your overall health, and moreover it is detrimental to your bone health. Nicotine, IN ANY FORM, kills bone cells, prevents your body from healing fractures, and significantly prolongs healing after surgery. In spine surgery specifically, it increases your risk of not healing your bones to create a fusion and increases your risk of having a revision surgery due to this up to 60%. I know it is hard. I know it feels impossible. But there are ways. Take control of your life. We are here to help you through it. And when you are ready, ask us and we can direct you to help if you desire. Use the START Plan to Quit Smoking (please visit the Helpguide.org website listed below for more information): S = Set a quit date. Choose a date within the next 2 weeks, so you have enough time to prepare without losing your motivation to quit. If you mainly smoke at work, quit on the weekend, so you have a few days to adjust to the change. T = Tell family, friends, and co-workers that you plan to quit. Let your friends and family in on your plan to quit smoking and tell them you need their support and encouragement to stop. Look for a quit saurabh who wants to stop smoking as well. You can help each other get through the rough times. A = Anticipate and plan for the challenges you'll face while quitting. Most people who begin smoking again do so within the first 3 months. You can help yourself make it through by preparing ahead for common challenges, such as nicotine withdrawal and cigarette cravings. R = Remove cigarettes and other tobacco products from your home, car, and work. Throw away all your cigarettes (no emergency pack!), lighters, ashtrays, and matches. Wash your clothes and freshen up anything that smells like smoke. Shampoo your car, clean your drapes and carpet, and steam your furniture. T = Talk to your doctor about getting help to quit. Your doctor can prescribe medication to help with withdrawal and suggest other alternatives. If you can't see a doctor, you can get many products over the counter at your local pharmacy or grocery store, including the nicotine patch, nicotine lozenges, and nicotine gum. Resources for Quitting Smoking: <https://www.[place].gov/documents/[facility]/Quit_Tobacco_Resources_for_patients_313 480_7.pdf> Supplementation: Take recommended dosages of Vitamin D and Calcium to help fortify your bones and help them to heal. See your health maintenance packet for dosages and recommended levels. DVT/VTE prophylaxis: You will be given compression stockings from the hospital. Wear these daily for the first two weeks after surgery. You may take them off at night. You may be prescribed a medication to help thin your blood. Take this as directed. If you are not prescribed this medication, early and frequent ambulation has been shown to be the best prophylaxis to deep vein thrombosis and sequelae related to this event. Discharge Disposition: HOME WITH HOME HEALTH SERVICES
[2024-03-28 14:17] VITALS: BP 124/73; PULSE 68; RESP 18
--- NOTE | 2024-03-28 16:54 | P.PN ---
Progress Note - Text Progress Note Date: 03/28/24 - Chief Complaint Low back pain with right leg pain - History of Present Illness This is a 38-year-old patient follows with Dr. Cassie Harden. This about the age of 15 years patient states he has been having lower back symptoms. Never really followed up with anybody. In December of this year patient had slipped on ice. Did go to see a chiropractor. With some help. Pain has been going up and down since then. This Thursday that is about 5 days ago patient started with severe pain what he describes on the lower back on the right side and pain became rather severe. EMS was called and he was taken to [facility]. From that they were planning to send him down to [facility]. But because of computer glitch they decided to send the patient home with pain medications. Patient is at home has been having severe pain. With the above symptoms. Able to make urine. Last bowel movement was 3 days ago. Presented to the ER. Here no fever no chills. Patient was sent in for an MRI from the ER but because of pain could not hold still. Hence postponed for tonight. March 26, 2024: Saw the patient this morning. Was seen earlier by Dr. Thompson. Patient going to the OR this afternoon. Pain somewhat better with pain medications. Has visitors including his at the bedside. NPO. March 27, 2024: Status post surgical intervention by Dr. Thompson. Hemovac in place. Some pain is present. Did eat some. Pain at operative site. March 28, 2024: Doing better. Did ambulate. Saw the patient this morning. Received laxative for a bowel movement. Making good urine. Eating fair. Pain better. Hemovac in place. Surgical team is planning for discharge. Active Medications Hydrocodone Bitart/Acetaminophen (Hydrocodone/Apap 5-325mg 1 Each Tab) 1 each PO Q4HR PRN PRN Reason: Pain Scale 4 - 6 Hydrocodone Bitart/Acetaminophen (Hydrocodone/Apap 10-325mg 1 Each Tab) 1 each PO Q6H PRN PRN Reason: Pain Scale 7 - 10 Last Admin: 03/28/24 11:44 Dose: 1 each Bisacodyl (Bisacodyl 10 Mg Supp) 10 mg RECTAL DAILY PRN PRN Reason: Constipation Calcium Carbonate/Glycine (Calcium Carbonate 500 Mg Chewable) 1,000 mg PO Q4HR PRN PRN Reason: Dyspepsia Cyclobenzaprine HCl (Cyclobenzaprine 10 Mg Tab) 10 mg PO TID [facility] Last Admin: 03/28/24 15:28 Dose: 10 mg Diazepam (Diazepam 5 Mg Tab) 5 mg PO ONCE PRN PRN Reason: Anxiety Stop: 03/28/24 23:00 Last Admin: 03/26/24 08:34 Dose: 5 mg Enoxaparin Sodium (Enoxaparin 40 Mg/0.4 Ml Syringe) 40 mg SQ DAILY [facility] Last Admin: 03/28/24 07:43 Dose: 40 mg Famotidine (Famotidine 20 Mg Tab) 20 mg PO BID [facility] Last Admin: 03/28/24 07:44 Dose: 20 mg Hydromorphone HCl (Hydromorphone 1 Mg/Ml 1 Ml Syringe) 1 mg IVP Q3HR PRN PRN Reason: Severe Pain (Scale 7 to 10) Last Admin: 03/27/24 10:01 Dose: 1 mg Hydromorphone HCl (Hydromorphone 0.5 Mg/0.5 Ml Syringe) 0.5 mg IVP Q3HR PRN PRN Reason: Pain Scale 4 - 6 Hydromorphone HCl (Hydromorphone 1 Mg/Ml 1 Ml Syringe) 1 mg IVP Q3HR PRN PRN Reason: Pain Scale of 7 - 10 Lactated Ringer's (Lactated Ringers) 1,000 mls @ 125 mls/hr IV .Q8H [facility] Last Admin: 03/28/24 09:38 Dose: Not Given Lactated Ringer's (Lactated Ringers) 1,000 mls @ 20 mls/hr IV .Q24H [facility] Last Admin: 03/27/24 16:43 Dose: Not Given Lactulose (Lactulose 20 Gm/30 Ml Cup) 20 gm PO DAILY PRN PRN Reason: Constipation Last Admin: 03/28/24 09:44 Dose: 20 gm Lidocaine HCl (Lidocaine 1% (10mg/Ml) For Iv Start) 0.1 ml INTRADERMA PER PROTOCOL PRN PRN Reason: IV Start Magnesium Hydroxide (Magnesium Hydroxide 2,400 Mg/30 Ml Cup) 2,400 mg PO DAILY PRN PRN Reason: Constipation Naloxone HCl (Naloxone 0.4 Mg/Ml 1 Ml Vial) 0.2 mg IV Q2M PRN PRN Reason: Opioid Reversal Naproxen (Naproxen 250 Mg Tab) 250 mg PO TID [facility] Last Admin: 03/28/24 15:28 Dose: 250 mg Ondansetron HCl (Ondansetron 4 Mg/2 Ml Vial) 4 mg IVP Q6HR PRN PRN Reason: Nausea And Vomiting Senna/Docusate Sodium (Sennosides-Docusate Sodium 1 Each Tab) 2 each PO DAILY [facility] Last Admin: 03/28/24 07:43 Dose: 2 each Sertraline HCl (Sertraline 25 Mg Tab) 25 mg PO DAILY [facility] Last Admin: 03/28/24 07:44 Dose: 25 mg Sodium Biphosphate/Sodium Phosphate (Na Phos,M-B/Na Phos,Di-Ba 133 Ml Enema) 133 ml RECTAL DAILY PRN PRN Reason: Constipation Tamsulosin HCl (Tamsulosin 0.4 Mg Cap.Er.24h) 0.4 mg PO PC-BRKFST [facility] Last Admin: 03/28/24 07:44 Dose: 0.4 mg Social history: 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 Cigarettes occasionally.. Occasional marijuana Physical examination: VITAL SIGNS: 98.1, 68, 18, 124 x 73, 98% room air GENERAL: Up in a chair, comfortable EYES: Pupils equal. Conjunctiva lilibeth l. HEENT: External appearance of nose and ears normal, oral cavity grossly normal. NECK: JVD not raised; masses not palpable. HEART: First and second heart sounds are normal; no edema. LUNGS: Respiratory rate normal; clear to auscultation. ABDOMEN: Soft, nontender, liver spleen not palpable, no masses palpable. PSYCH: Alert and oriented x3; mood and affect anxious l. MUSCULOSKELETAL:No Clubbing/cyanosis;muscles-grossly intact. Dressing over surgical site. Hemovac in place NEUROLOGICAL: Cranial nerves grossly intact; no facial asymmetry, able to move his limbs INVESTIGATIONS, reviewed in the clinical context: Page 13: White count 10.2 hemoglobin 13.4 platelets 181 March 12: White count 9.8 hemoglobin 14.5 platelets 185 potassium 4.6 creatinine 0.7 March 11: White count 11 hemoglobin 16.1 platelets 198 potassium 4[address] lumbar spine without contrast: L3-L4 right central disc extrusion with mild spinal canal stenosis which appears to have inferior migration up to 15 mm. Mild to moderate neural foraminal stenosis bilaterally. L4-L5 posterior osteophytes with disc bulge with mild to moderate spinal canal stenosis.There is moderate neural foraminal stenosis bilaterally. Assessment plan: -Acute on chronic lower back pain more localized in the area of the lower lumbar spine and in the area of the right SI joint. Patient's had back problems since the age of 15. Back in December had a fall with increasing pain. Did go to see the chiropractor with some help. Since 5 days pain has become much worse. Cannot feel the right leg and increasing pain interfering with walking.: Initially received IV Decadron. Naproxen 1. 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 L4-5 SPONDYLOSIS, SEVERE WITH SEVERE STENOSIS 3. L5-S1 BILATERAL SPONDYLOLYSIS WITH GRADE I SPONDYLOLISTHESIS, UNSTABLE 4. LE RADICULOPATHY 5. LE WEAKNESS 6. LOW BACK PAIN 7. COMPLEX SURGICAL PATIENT Procedure(s) Performed: 1. L5-S1 INTRADISCAL OSTEOTOMY, 3 COLUMN, FOR DEFORMITY CORRECTION. 2. L4-5 POSTEROLATERAL AND INTERBODY FUSION 3. L5-S1 POSTEROLATERAL AND INTERBODY FUSION 4. L3-4, L4-5, L5-S1 BILATERAL LAMINECTOMY, FACETECTOMY AND FORAMINOTOMY. L3-4 IS WITH MICRODISCECTOMY. L4-S1 IS FOR NEURAL DECOMPRESSION WELL CAGE PLACEMENT. 5. L4-S1 SEGMENTAL INSTRUMENTATION 6. L4-5 AND L5-S1 INSERTION OF BIOMECHANICAL DEVICE, CAGES X2 Implants: -[employer] -MCAKY TRITANIUM CAGES [id number] MED; 9X9MM MED. -AUTOGRAFT, ALLOGRAFT, DBM, MAGNATOS -Anxiety depression otherwise specified Zoloft -Obesity BMI 31.7 Weight loss measures Doing much better. Questions answered. Thank you Dr. Thompson Past Medical History Past Medical History: Asthma Additional Past Medical History / Comment(s): COVID 2022 Past Surgical History: Bariatric Surgery Additional Past Surgical History / Comment(s): shoulder tendon repair surgery 2022 Past Psychological History: Anxiety, Depression Smoking Status: Never smoker Past Alcohol Use History: Occasional Past Drug Use History: Marijuana
== END 2024-03-28 17:20 | disposition home health service (06) | DRG 455 ==
LOC: EC 10:43 → 4SSUR 15:49 → OBSVTOIN 03-26 16:36
PROVIDERS: ADMIT Orthopaedic Surgery; ATTEND Orthopaedic Surgery
PROC: 0SG0071 Fusion of Lumbar Vertebral Joint with Autologous Tissue Substitute, Posterior Approach, Posterior Column, Open Approach (ICD-10-PCS; 2024-03-26)
PROC: 0SG30AJ Fusion of Lumbosacral Joint with Interbody Fusion Device, Posterior Approach, Anterior Column, Open Approach (ICD-10-PCS; 2024-03-26)
PROC: 0ST40ZZ Resection of Lumbosacral Disc, Open Approach (ICD-10-PCS; 2024-03-26)
PROC: 0SG3071 Fusion of Lumbosacral Joint with Autologous Tissue Substitute, Posterior Approach, Posterior Column, Open Approach (ICD-10-PCS; 2024-03-26)
PROC: 01NB0ZZ Release Lumbar Nerve, Open Approach (ICD-10-PCS; 2024-03-26)
PROC: 01NR0ZZ Release Sacral Nerve, Open Approach (ICD-10-PCS; 2024-03-26)
PROC: 0SG00AJ Fusion of Lumbar Vertebral Joint with Interbody Fusion Device, Posterior Approach, Anterior Column, Open Approach (ICD-10-PCS; principal; 2024-03-26 10:00)
DX: M51.16 Intervertebral disc disorders with radiculopathy, lumbar region (principal); F32.A Depression, unspecified; E66.9 Obesity, unspecified; M47.26 Other spondylosis with radiculopathy, lumbar region; M48.061 Spinal stenosis, lumbar region without neurogenic claudication; M43.17 Spondylolisthesis, lumbosacral region; K59.00 Constipation, unspecified; R39.198 Other difficulties with micturition; G89.29 Other chronic pain; F41.9 Anxiety disorder, unspecified; M25.78 Osteophyte, vertebrae; Z86.16 Personal history of COVID-19; Z79.899 Other long term (current) drug therapy; Z68.31 Body mass index [BMI] 31.0-31.9, adult; Z88.0 Allergy status to penicillin; Z91.81 History of falling; Z98.84 Bariatric surgery status
CPT/HCPCS: 72100; 72131; 72148; 80048; 80053; 85025; 96374; 96375; 96376; 99285